=== PATIENT | male | born 1965 | race Caucasian/White ===

== ENCOUNTER 2017-11-23 20:03 | Emergency (ER) | payer SELFPAY ==
[~2017-11-23] VITALS: Ht 180.3 cm; Wt 88.0 kg
[2017-11-23] MEDS ORDERED: IV NORMAL SALINE 1,000ML 1,000 ML IV SCH (20:16)
--- NOTE | 2017-11-23 20:29 | RAD ---
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 No priors. Technique: Noncontrast axial cross sectional scanning of the head was performed. PQRS compliance Statement One or more of the following individualized dose reduction techniques were utilized for this study: 1. Automated exposure control 2. Adjustment of the mA and/or kV according to patient size 3. Use of iterative reconstruction technique Findings: No acute intracranial hemorrhage or midline shift or mass-effect or hydrocephalus or extra-axial fluid collection is seen. No focal hypodense area or sulci effacement is seen to indicate an acute infarct or edema radiographically. No skull fracture or pneumocephalus is seen. No opacification of the mastoid sinuses or the paranasal sinuses is seen. The maxillary sinuses are not completely seen in this study. Impression: No acute intracranial abnormality is seen. Note-this critical result was called to the emergency room physician at 8:26 PM on November 23, 2017. Electronically signed by: Kenn Rojas MD (11/23/2017 8:26 PM) [facility]
[2017-11-23 20:45] VITALS: BP 165/91
[2017-11-23 20:45] LABS: BASO % 1 % (0-3); EOS # 0.1 x10^3/uL (0.0-0.7); EOS % 2 % (0-3); HEMATOCRIT 43.3 % (39.0-53.0); HEMOGLOBIN 14.9 g/dL (13.0-17.5); LYMPH # 1.6 x10^3/uL (1.0-4.8); LYMPH % 24 % (24-48); MEAN CORPUSCULAR HEMOGLOBIN 28 pg (25-35); MEAN CORPUSCULAR HGB CONC 35 g/dL (31-37); MEAN CORPUSCULAR VOLUME 81 fL (79-100); MONO # 0.4 x10^3/uL (0.0-1.1); MONO % 7 % (0-9); NEUT # 4.4 x10^3uL (1.8-7.7); NEUT % 67 % (31-73); PLATELET COUNT 261 x10^3/uL (140-400); RED BLOOD COUNT 5.36 x10^6/uL (4.30-5.70); RED CELL DISTRIBUTION WIDTH 14.5 % (11.5-14.5); WHITE BLOOD COUNT 6.6 x10^3/uL (4.0-11.0)
[2017-11-23 21:00] LABS: ALBUMIN 4.3 g/dL (3.4-5.0); ALBUMIN/GLOBULIN RATIO 1.1 (1.0-1.7); CREATININE 1.4 mg/dL (0.7-1.3); POTASSIUM 4.1 mmol/L (3.5-5.1); TOTAL BILIRUBIN 0.4 mg/dL (0.2-1.0); TOTAL PROTEIN 8.1 g/dL (6.4-8.2)
[2017-11-23] MEDS ORDERED: IV NORMAL SALINE 50ML 50 ML IV ONE (21:00)
[2017-11-23] MEDS ORDERED: ALTEPLASE IV SCH (21:00)
[2017-11-23 21:13] LABS: BACTERIA,URINE 0 /HPF (0-FEW); BILIRUBIN,URINE NEG (NEG); CLARITY,URINE CLEAR; COLOR,URINE STRAW; GLUCOSE,URINE >=1000 mg/dL (NEG); NITRITE,URINE NEG (NEG); RBC,URINE RARE /HPF (0-2); SQUAMOUS EPITHELIAL CELL,UR OCC /LPF; UROBILINOGEN,URINE 0.2 mg/dL (0.2 mg/dL); WBC,URINE RARE /HPF (0-4)
[2017-11-23] MEDS ORDERED: ALTEPLASE IV ONE (21:15)
--- NOTE | 2017-11-23 21:42 | PHYS DOC ---
Past History Past Medical History: Hypertension Past Surgical History: No Surgical History Alcohol Use: None Drug Use: None Adult General Chief Complaint Chief Complaint: SLURRED SPEECH HPI HPI 52-year-old male presenting to the emergency department today with slurred speech and right upper extremity numbness and weakness. Patient was last known well at 6 PM this evening. He has mild difficulty finding words as well. Location brain. Duration constant. No alleviating or exacerbating factors present. This occurred while he was eating dinner, his noticed that he was sounding funny when he spoke. He also reports a change in smell at that time as well. ROS is negative for headache neck stiffness vision changes confusion abdominal pain chest pain shortness of breath. All other review of systems is negative unless otherwise noted in history of present illness. ED course: 52-year-old male presenting to the emergency department today with strokelike symptoms. Head CT unremarkable. Discussed the case with radiologist who reviewed the head CT. Discussed the case with our neurologist Dr. Coyle and [facility] neurologist Dr. Edmond. Inclusion: Patient presented within 3 hours of his last known well at 6 PM. He is older than 18. Blood work obtained. NIH stroke scale calculated to be 6. Checklist utilized for the eligibility of TPA. Glucose is 347, blood pressure is 165/91, platelet count is 261, INR is 1.0. Patient is not on anticoagulants. He does not have a history of intracranial hemorrhage. He has not had a stroke or head trauma in the last 3 months. He does not have an intracranial neoplasm, AV malformation or aneurysm. He has not had a recent intracranial or intraspinal surgery. He has not had recent arterial puncture. His symptoms are not suggestive of subarachnoid hemorrhage. He does not have active internal bleeding. He does not have acute bleeding diathesis. He has not had a major surgery or serious trauma in the last 14 days. He has not had GI or urinary tract bleeding over the past 21 days. He has not had an myocardial infarction in the last 3 months. He did not have a seizure at the onset of symptoms. I also reviewed the checklist for [facility] alteplase exclusion and inclusion criteria. Patient does not have any contraindications. Dr. Edmond accepted the patient for transfer. He strongly recommended not giving TPA until the patient's platelets were back and until the patient's INR was back. I clarified with him as the patient is not on anticoagulants and is not bruising easily and has never had bleeding issues. He again strongly recommended waiting until these tests came back to give the TPA. I had a risk-benefit discussion with the patient along with alternatives for treatment and the pt and his give consent. In conjunction with the neurologist at [facility] Dr. Edmond with the family's consent it was decided to give TPA. We then expedited transfer to our major stroke center at [facility] for CT angiography/CT perfusion scanning, further evaluation workup and care to a higher level stroke center. My NIH Stroke Scale: Level of consciousness 0 Level of consciousness questions 0 Best gaze 0 Visual valentine 0 Facial palsy 0 Left motor arm 0 Right motor arm 1 Left motor leg 0 Right motor leg 0 Limb ataxia 1 Sensory 1 Best language 1 Dysarthria 1 Extension and inattention 1 Total score: 6 Checklist Utilized: Eligibility criteria for the treatment of acute ischemic stroke with recombinant tissue plasminogen activator (alteplase) Inclusion criteria Clinical diagnosis of ischemic stroke causing measurable neurologic deficit Onset of symptoms <4.5 hours before beginning treatment; if the exact time of stroke onset is not known, it is defined as the last time the patient was known to be normal Age 18 years Exclusion criteria Historical: Stroke or head trauma in the previous three months Previous intracranial hemorrhage Intracranial neoplasm, arteriovenous malformation, or aneurysm Recent intracranial or intraspinal surgery Arterial puncture at a noncompressible site in the previous seven days Clinical: Symptoms suggestive of subarachnoid hemorrhage Persistent blood pressure elevation (systolic 185 mmHg or diastolic 110 mmHg) Serum glucose <50 mg/dL (<2.8 mmol/L) Active internal bleeding Acute bleeding diathesis, including but not limited to conditions defined in ' Hematologic' Hematologic: Platelet count <100,000/mm3* Current anticoagulant use with an INR >1.7 or PT >15 seconds* Heparin use within 48 hours and an abnormally elevated aPTT* Current use of a direct thrombin inhibitor or direct factor Xa inhibitor with evidence of anticoagulant effect by laboratory tests such as aPTT, INR, ECT, TT , or appropriate factor Xa activity assays Head CT scan: Evidence of hemorrhage Extensive regions of obvious hypodensity consistent with irreversible injury Relative exclusion criteria: Only minor and isolated neurologic signs Rapidly improving stroke symptoms Major surgery or serious trauma in the previous 14 days Gastrointestinal or urinary tract bleeding in the previous 21 days Myocardial infarction in the previous three months Seizure at the onset of stroke with postictal neurologic impairments Additional relative exclusion criteria for treatment from 3 to 4.5 hours from symptom onset Age >80 years Oral anticoagulant use regardless of INR Severe stroke (NIHSS score >25) Combination of both previous ischemic stroke and diabetes mellitus Review of Systems Review of Systems SEE ABOVE. Current Medications Current Medications Current Medications Medications (Trade) Dose Ordered Sig/[place] Start Time Stop Time Status Last Admin Dose Admin Alteplase, Recombinant 0 ml @ 0 mls/hr Q1H 11/23/17 21:00 11/23/17 21:02 DC 11/23/17 21:08 71.5 MLS/HR Sodium Chloride 50 ml @ 0 mls/hr 1X ONCE 11/23/17 21:00 11/23/17 21:02 DC Allergies Allergies Allergies Coded Allergies Type Severity Reaction Last Updated Verified No Known Drug Allergies 11/23/17 No Physical Exam Physical Exam SEE ABOVE Constitutional: Well developed, well nourished, no acute distress, non-toxic appearance. [] HENT: Normocephalic, atraumatic, bilateral external ears normal, oropharynx moist, no oral exudates, nose normal. [] Eyes: PERRLA, EOMI, conjunctiva normal, no discharge. [] Neck: Normal range of motion, no tenderness, supple, no stridor. [] Cardiovascular:Heart rate regular rhythm, no murmur [] Lungs & Thorax: Bilateral breath sounds clear to auscultation [] Abdomen: Bowel sounds normal, soft, no tenderness, no masses, no pulsatile masses. [] Skin: Warm, dry, no erythema, no rash. [] Back: No tenderness, no CVA tenderness. [] Extremities: No tenderness, no cyanosis, no clubbing, ROM intact, no edema. [] Neurologic: Mental status: Awake oriented and alert x3 Cranial nerves: Extraocular movements intact, eyebrows rhona bilaterally, smile symmetric, uvula elevation nl, shoulder shrug intact bilaterally, tongue protrusion normal DTRs: 2+ Sensation: Patient has decreased sensation in the right upper extremity. The remainder the extremities have normal sensation. Strength: Patient is unable to grab my fingers with his right upper hand. Significantly weak in the RUE. 4 out of 5 strength in the bicep and tricep. Forearm musculature show 2 out of 5 strength. He has mild drift on the right upper extremity. Patient has 5 out of 5 strength in the left upper extremity, and the left and right lower extremities. Patient has abnormal finger to nose on the right upper extremity. Normal heel-to -christopher on both sides. Normal finger to nose on the left upper extremity. No evidence of dysdiadochokinesia on rapid alternating movements. Psychologic: Affect normal, judgement normal, mood normal. [] Current Patient Data Vital Signs Vital Signs Date Time Temp Pulse Resp B/P (MAP) Pulse Ox O2 Delivery O2 Flow Rate FiO2 11/23/17 21:15 60 18 154/95 (114) 99 Room Air 11/23/17 20:45 97.9 Lab Results Laboratory Tests Test 11/23/17 20:23 11/23/17 20:30 Glucose (Fingerstick) 347 mg/dL (70-99) H White Blood Count 6.6 x10^3/uL (4.0-11.0) Red Blood Count 5.36 x10^6/uL (4.30-5.70) Hemoglobin 14.9 g/dL (13.0-17.5) Hematocrit 43.3 % (39.0-53.0) Mean Corpuscular Volume 81 fL (79-100) Mean Corpuscular Hemoglobin 28 pg (25-35) Mean Corpuscular Hemoglobin Concent 35 g/dL (31-37) Red Cell Distribution Width 14.5 % (11.5-14.5) Platelet Count 261 x10^3/uL (140-400) Neutrophils (%) (Auto) 67 % (31-73) Lymphocytes (%) (Auto) 24 % (24-48) Monocytes (%) (Auto) 7 % (0-9) Eosinophils (%) (Auto) 2 % (0-3) Basophils (%) (Auto) 1 % (0-3) Neutrophils # (Auto) 4.4 x10^3uL (1.8-7.7) Lymphocytes # (Auto) 1.6 x10^3/uL (1.0-4.8) Monocytes # (Auto) 0.4 x10^3/uL (0.0-1.1) Eosinophils # (Auto) 0.1 x10^3/uL (0.0-0.7) Basophils # (Auto) 0.0 x10^3/uL (0.0-0.2) Prothrombin Time 10.4 SEC (9.4-11.4) Prothrombin Time INR 1.0 (0.9-1.1) PTT 29 SEC (23-33) Urine Collection Type Unknown Urine Color Straw Urine Clarity Clear Urine pH 7.0 Urine Specific [place] 1.015 Urine Protein Neg (NEG-TRACE) Urine Glucose (UA) >=1000 mg/dL (NEG) Urine Ketones (Stick) Neg mg/dL (NEG) Urine Blood Neg (NEG) Urine Nitrite Neg (NEG) Urine Bilirubin Neg (NEG) Urine Urobilinogen Dipstick 0.2 mg/dL (0.2 mg/dL) Urine Leukocyte Esterase Neg (NEG) Urine RBC Rare /HPF (0-2) Urine WBC Rare /HPF (0-4) Urine Squamous Epithelial Cells Occ /LPF Urine Bacteria 0 /HPF (0-FEW) Sodium Level 139 mmol/L (136-145) Potassium Level 4.1 mmol/L (3.5-5.1) Chloride Level 99 mmol/L (98-107) Carbon Dioxide Level 32 mmol/L (21-32) Anion Gap 8 (6-14) Blood Urea Nitrogen 18 mg/dL (8-26) Creatinine 1.4 mg/dL (0.7-1.3) H Estimated GFR (Cockcroft-Gault) 53.0 BUN/Creatinine Ratio 13 (6-20) Glucose Level 354 mg/dL (70-99) H Calcium Level 9.0 mg/dL (8.5-10.1) Total Bilirubin 0.4 mg/dL (0.2-1.0) Aspartate Amino Transferase (AST) 20 U/L (15-37) Alanine Aminotransferase (ALT) 38 U/L (16-63) Alkaline Phosphatase 103 U/L (46-116) Troponin I Quantitative < 0.017 ng/mL (0-0.055) Total Protein 8.1 g/dL (6.4-8.2) Albumin 4.3 g/dL (3.4-5.0) Albumin/Globulin Ratio 1.1 (1.0-1.7) EKG EKG [] Radiology/Procedures Radiology/Procedures [address] [address] IMAGING REPORT Signed PATIENT: WILLI WEN ACCOUNT: [id number] : 1965 LOCATION: ER AGE: 52 SEX: M EXAM STATUS: PRE ER ORD. 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 No priors. Technique: Noncontrast axial cross sectional scanning of the head was performed. PQRS compliance Statement One or more of the following individualized dose reduction techniques were utilized for this study: 1. Automated exposure control 2. Adjustment of the mA and/or kV according to patient size 3. Use of iterative reconstruction technique Findings: No acute intracranial hemorrhage or midline shift or mass-effect or hydrocephalus or extra-axial fluid collection is seen. No focal hypodense area or sulci effacement is seen to indicate an acute infarct or edema radiographically. No skull fracture or pneumocephalus is seen. No opacification of the mastoid sinuses or the paranasal sinuses is seen. The maxillary sinuses are not completely seen in this study. Impression: No acute intracranial abnormality is seen. Note-this critical result was called to the emergency room physician at 8:26 PM on November 23, 2017. Electronically signed by: Yoly Rojas MD (11/23/2017 8:26 PM) [facility] DICTATED AND SIGNED BY: YOLY ROJAS MD DATE: 11/23/172022 CC: IGOR NOLAND APRN; GISSEL GAN MD ~ [] Course & Med Decision Making Course & Med Decision Making Pertinent Labs and Imaging studies reviewed. (See chart for details) [] Dragon Disclaimer Dragon Disclaimer This electronic medical record was generated, in whole or in part, using a voice recognition dictation system. Departure Departure: Impression: Primary Impression: Stroke-like symptoms Disposition: XF [facility] (formerly [facility]. Accepting doctor is dr. edmond and dr. Celeste. ) Condition: GUARDED Referrals: IGOR NOLAND APRN (PCP) Critical Care Time Critical care time spent was 35 minutes exclusive of procedures. Time was spent evaluating the patient, ordering the administration of medications, reevaluating the patient, discussing with the admitting provider and documenting. GISSEL GAN MD Nov 23, 2017 21:42
--- NOTE | 2017-11-24 08:07 | RAD ---
Single view chest 11/23/2017 Clinical indication: Right-sided weakness slurred speech. Comparison: None. Findings: Cardiac and mediastinal silhouettes are unremarkable. No pleural effusion, pneumothorax or focal consolidation. There is superior positioning of the clavicle relative to the acromion. Impression: 1. No acute cardiopulmonary abnormality. 2. Superior positioning of the clavicle relative to the acromion, may represent AC injury.
== END 2017-11-23 21:26 | disposition short-term general hospital (02) ==
LOC: ER 20:03
DX: R47.81 Slurred speech (principal); R53.1 Weakness; R20.0 Anesthesia of skin; I10 Essential (primary) hypertension
CPT/HCPCS: 36415; 37195; 70450; 71045; 80053; 81001; 82947; 84484; 85025; 85610; 85730; 99291; J2997; J7030

== ENCOUNTER 2018-02-05 16:25 | Inpatient (IN) | payer SELFPAY ==
[~2018-02-05] VITALS: Ht 180.3 cm; Wt 89.9 kg
--- NOTE | 2018-02-05 16:39 | PHYS DOC ---
Past History Past Medical History: Hypertension Past Surgical History: No Surgical History Alcohol Use: None Drug Use: None Adult General Chief Complaint Chief Complaint: NEURO SYMPTOMS/DEFICITS [facility] Patient is a 53-year-old male who presents with leg weakness and numbness. Patient got up from sitting to about 2 steps and his leg went numb and weak. This lasted for about 20 minutes and has resolved completely now. He states he seen in October for a stroke and received TPA at that time. He does have a history of diabetes. He states that sugars been running higher since discharge it [facility] because. His oral medications. He denies any fevers chills nausea or vomiting. He states he feels back to normal at this time. He denies any trouble speaking denied falling and hitting his head or having head or neck pain. Review of Systems Review of Systems Constitutional: Denies fever or chills [] Eyes: Denies change in visual acuity, redness, or eye pain [] HENT: Denies nasal congestion or sore throat [] Respiratory: Denies cough or shortness of breath [] Cardiovascular: No additional information not addressed in HPI [] GI: Denies abdominal pain, nausea, vomiting, bloody stools or diarrhea [] : Denies dysuria or hematuria [] Musculoskeletal: Denies back pain or joint pain [] Integument: Denies rash or skin lesions [] Neurologic: Denies headache, focal weakness or sensory changes [] Endocrine: Denies polyuria or polydipsia [] All other systems were reviewed and found to be within normal limits, except as documented in this note. Allergies Allergies Allergies Coded Allergies Type Severity Reaction Last Updated Verified No Known Drug Allergies 11/23/17 No Physical Exam Physical Exam Constitutional: Well developed, well nourished, no acute distress, non-toxic appearance. [] HENT: Normocephalic, atraumatic, bilateral external ears normal, oropharynx moist, no oral exudates, nose normal. [] Eyes: PERRLA, EOMI, conjunctiva normal, no discharge. [] Neck: Normal range of motion, no tenderness, supple, no stridor. [] Cardiovascular:Heart rate regular rhythm, no murmur [] Lungs & Thorax: Bilateral breath sounds clear to auscultation [] Abdomen: Bowel sounds normal, soft, no tenderness, no masses, no pulsatile masses. [] Skin: Warm, dry, no erythema, no rash. [] Back: No tenderness, no CVA tenderness. [] Extremities: No tenderness, no cyanosis, no clubbing, ROM intact, no edema. [] Neurologic: Alert and oriented X 3, normal motor function, normal sensory function, no focal deficits noted. I am nerves II through XII intact, strength 5 out of 5 bilateral upper and lower extremities, sensation intact to light touch in all 4 extremities. Psychologic: Affect normal, judgement normal, mood normal. [] EKG EKG [] Radiology/Procedures Radiology/Procedures [] Impressions: Left leg weakness Course & Med Decision Making Course & Med Decision Making Pertinent Labs and Imaging studies reviewed. (See chart for details) CT head nonacute. Patient symptoms have resolved. Currently waiting on labs. Patient's being checked out to Dr. Rothman for final disposition. Signout obtained from Dr. Lazo. Patient reviewed by al. Plan as outlined by Dr. Lazo is to admit patient pending significant abnormalities and a chemistry. Prior to sign out, patient's CT report as well as all the labs except for CMP had been resulted. Patient's CMP is unremarkable. Will resume with plan as outlined by Dr. Lazo. Patient will be admitted to telemetry. Case has been discussed with Dr. Maldonado who has agreed to assist in further inpatient care of this patient. Dragon Disclaimer Dragon Disclaimer This electronic medical record was generated, in whole or in part, using a voice recognition dictation system. Departure Departure: Impression: Primary Impression: Stroke Disposition: ADMITTED INPATIENT Admitting Physician: Ashley Messer Condition: STABLE Referrals: LEIGH ANN ANDRADE-Silas (PCP) CORNELIA SIMON MD Feb 05, 2018 16:39 DARLYN BENAVIDEZ MD Feb 05, 2018 18:40
--- NOTE | 2018-02-05 17:02 | RAD ---
Clinical indications: Numbness on the right side with slurred speech. Code stroke Technique: Noncontrast axial cross sectional scanning of the head was performed. PQRS Compliance Statement: One or more of the following individualized dose reduction techniques were utilized for this examination: 1. Automated exposure control 2. Adjustment of the mA and/or kV according to patient size 3. Use of iterative reconstruction technique Comparison: November 23, 2017. Findings: No acute intracranial hemorrhage or midline shift or mass-effect or hydrocephalus or extra-axial fluid collection is seen. No new focal hypodense area or sulci effacement is seen to indicate an acute infarct or edema radiographically. No skull fracture or pneumocephalus is seen. No opacification of the mastoid sinuses or the paranasal sinuses is seen. The maxillary sinuses are not completely seen in this study. Impression: No acute intracranial abnormality is seen. Note-this critical result was called to the emergency room physician Dr. Itz Manrique at 4:59 PM on February 05, 2018.
--- NOTE | 2018-02-05 17:07 | RAD ---
Portable AP view CXR: Clinical indications: Numbness and right-sided weakness and slurred speech for one day. Code stroke. Comparison: April 23, 2018. Findings: No acute lung infiltrate or pleural effusion or pulmonary edema or lung mass or pneumothorax is seen. The heart size, pulmonary vasculature, mediastinum and both yany are unremarkable. Impression: No acute radiographic abnormality is seen.
--- NOTE | 2018-02-05 17:31 | EKG ---
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
[2018-02-05 17:39] LABS: BASO % 1 % (0-3); EOS # 0.1 x10^3/uL (0.0-0.7); EOS % 1 % (0-3); HEMATOCRIT 44.1 % (39.0-53.0); HEMOGLOBIN 15.1 g/dL (13.0-17.5); LYMPH # 2.1 x10^3/uL (1.0-4.8); LYMPH % 26 % (24-48); MEAN CORPUSCULAR HEMOGLOBIN 28 pg (25-35); MEAN CORPUSCULAR HGB CONC 34 g/dL (31-37); MEAN CORPUSCULAR VOLUME 81 fL (79-100); MONO # 0.5 x10^3/uL (0.0-1.1); MONO % 7 % (0-9); NEUT # 5.3 x10^3uL (1.8-7.7); NEUT % 66 % (31-73); PLATELET COUNT 229 x10^3/uL (140-400); RED BLOOD COUNT 5.41 x10^6/uL (4.30-5.70); RED CELL DISTRIBUTION WIDTH 14.9 % (11.5-14.5)
[2018-02-05 17:52] LABS: AMPHETAMINE/METHAMPHETAMINE NEG (NEG); BARBITURATES NEG (NEG); BENZODIAZEPINES NEG (NEG); CANNABINOIDS NEG (NEG); COCAINE NEG (NEG); METHADONE NEG (NEG); OPIATES NEG (NEG); PHENCYCLIDINE NEG (NEG)
[2018-02-05 18:00] LABS: CLARITY,URINE CLEAR; COLOR,URINE YELLOW; GLUCOSE,URINE 250 mg/dL (NEG)
[2018-02-05 18:02] LABS: BACTERIA,URINE 0 /HPF (0-FEW); BILIRUBIN,URINE NEG (NEG); NITRITE,URINE NEG (NEG); RBC,URINE RARE /HPF (0-2); SQUAMOUS EPITHELIAL CELL,UR OCC /LPF; UROBILINOGEN,URINE 0.2 mg/dL (0.2 mg/dL); WBC,URINE OCC /HPF (0-4)
[2018-02-05 18:09] LABS: ALBUMIN 3.9 g/dL (3.4-5.0); ALBUMIN/GLOBULIN RATIO 1.3 (1.0-1.7); CALCIUM 9.4 mg/dL (8.5-10.1); CREATININE 1.3 mg/dL (0.7-1.3); DIRECT BILIRUBIN 0.1 mg/dL (0.0-0.2); GFR 57.5; MAGNESIUM 2.3 mg/dL (1.8-2.4); POTASSIUM 4.2 mmol/L (3.5-5.1); TOTAL BILIRUBIN 0.6 mg/dL (0.2-1.0); TOTAL PROTEIN 6.9 g/dL (6.4-8.2)
[2018-02-05] MEDS ORDERED: ACETAMINOPHEN 325 MG TABLET PO PRN (18:30)
[2018-02-05] MEDS ORDERED: ONDANSETRON PF 4 MG/2 ML VIAL. IV PRN (18:30)
[2018-02-05 19:50] VITALS: BP 158/77
[2018-02-05] MEDS ORDERED: PITA4TAB2 PO (20:43)
[2018-02-05] MEDS ORDERED: CARV40CP PO (20:43)
[2018-02-05] MEDS ORDERED: ASPI81TA50 PO (20:43)
[2018-02-05] MEDS ORDERED: AMLO5TAB4 PO (20:43)
[2018-02-05] MEDS ORDERED: GLIP10TA13 PO (20:43)
[2018-02-05] MEDS ORDERED: LEVO100T PO (20:43)
[2018-02-05] MEDS ORDERED: INSU100I13 SQ (20:43)
[2018-02-05] MEDS ORDERED: ASPI325T11 PO (20:48)
[2018-02-05] MEDS: ATORVASTATIN CALCIUM 20 MG TABLET PO SCH (21:00)
[2018-02-05] MEDS ORDERED: INSULIN DETEMIR 300 UNITS/3 ML INSULN.PEN. SQ ONE (21:25)
[2018-02-05 23:00] VITALS: BP 150/73
[2018-02-05] MEDS ORDERED: INSU100I17 SQ (23:25)
[2018-02-06 03:04] VITALS: BP 142/68
--- NOTE | 2018-02-06 03:54 | CONS ---
DATE OF CONSULTATION: 02/05/2018 NEURO CONSULT REFERRING PHYSICIAN: Dr. Messer. REASON FOR CONSULTATION: Rule out stroke. HISTORY OF PRESENT ILLNESS: This is a 53-year-old right-handed male who was admitted through Emergency Room after he presented with 45-60 minutes -- history of weakness of the left lower extremity. The patient stated he had a stroke in 10/2017, presented with right-sided weakness and slurred speech. He had a complete stroke workup at [facility] including MRI and carotid Doppler study. He stated his carotid Doppler study showed complete occlusion of the left carotid artery and 75% occlusion of the right internal carotid artery. He stated the physician tried to open up the right internal carotid artery, but was not successful. Currently, he denies headaches, visual disturbances, nausea, vomiting, chest pain, shortness of breath, palpitation, dysarthria, dysphagia, weakness or paresthesia. PAST MEDICAL HISTORY: Significant for hypertension, stroke as described above without significant residual deficit. SOCIAL HISTORY: The patient denies smoking, alcohol drinking, or illicit drug use. He is . He does not work because he had a stroke. CURRENT MEDICATIONS: Tylenol for pain and Zofran for p.r.n. for nausea and vomiting, also he takes aspirin 81 mg p.o. daily. REVIEW OF SYSTEMS: A 10-point review of system was performed as mentioned above in history of present illness, otherwise unremarkable. ALLERGIES: No known drug allergies. PHYSICAL EXAMINATION: GENERAL: Well-developed, well-nourished white male, not in acute distress. He weighs 94 pounds, the height is 71 inches. VITAL SIGNS: Blood pressure 135/77, respiratory rate 16, pulse is 51, temperature is 97.9, oxygen saturation is 99% on room air. HEENT: Normocephalic, atraumatic, otherwise unremarkable. NECK: Supple. Positive for left carotid bruit. Negative for JVD, thyromegaly, or lymphadenopathy. LUNGS: Clear to A and P. CARDIOVASCULAR: Regular rate rhythm. Normal S1, S2. There is no S3, S4, or murmur. ABDOMEN: Soft. Bowel sounds positive. EXTREMITIES: Negative for cyanosis, clubbing or pitting edema. NEUROLOGIC: 1. MENTAL STATUS: The patient is alert and oriented x 3. The speech is fluent. There is no language dysfunction. Memory, judgment and abstracting thinking are normal. The patient denies hallucination or delusion. 2. CRANIAL NERVES: Visual valentine are full. The pupils are reactive to light and accommodation. The extraocular movements are intact. There is no nystagmus. There is no facial motor or sensory deficit. Hearing is intact bilaterally. The palate is elevated symmetrically. Sternocleidomastoid muscles are powerful bilaterally. The patient shrugs his shoulders symmetrically and protrudes his tongue in the midline without fasciculation or atrophy. 3. MOTOR: No focal muscle bulk was seen. The tone is normal. The strength is 5/5 throughout. 4. SENSORY: Revealed normal pinprick, light touch, vibratory and position senses. 5. DEEP TENDON REFLEXES: Symmetric and active without pathologic responses. 6. GAIT AND COORDINATION: Normal. LABORATORY DATA: CBC revealed white blood cells of 8000, hemoglobin 15.1, hematocrit 44.1, platelet count 229,000. Chemistry revealed sodium of 139, potassium 4.2, chloride 101, CO2 29, BUN 17, creatinine 1.3, glucose is 92. Liver enzymes are normal. Troponin level less than 0.017. Cardiac enzymes are normal. Urinalysis is negative for urinary tract infections. Urine drug screen is negative. IMPRESSION: 1. Questionable transient ischemic attack, presented with 1-hour history of left lower extremity weakness with history of bilateral internal carotid artery stenosis, complete occlusion of the left side and 75% occlusion on the right side. 2. Hypertension. 3. History of stroke as described above without significant neurological residuals. RECOMMENDATIONS: 1. Continue the patient with aspirin at 325 mg if there are no contraindications. 2. We will obtain a recent brain MRI/MRA or carotid Doppler study or angiogram of the neck. M Erin CALIXTO MD DR: BELIA/alex JOB#: [id number] / [id number]
[2018-02-06 07:00] VITALS: BP 134/80
[2018-02-06] MEDS ORDERED: LEVOTHYROXINE 100 MCG TABLET PO SCH (07:00)
[2018-02-06] MEDS: glipiZIDE 5 MG TABLET PO SCH ×2 (07:32→16:50)
[2018-02-06] MEDS: CARVEDILOL 12.5 MG TABLET PO SCH ×2 (08:00→16:50)
[2018-02-06] MEDS: INSULIN ASPART 300 UNITS/3 ML INSULN.PEN SQ SCH ×3 (08:44→16:51)
[2018-02-06] MEDS ORDERED: ASPIRIN ENTERIC COATED 81 MG TABLET.DR. PO SCH (09:00)
[2018-02-06] MEDS ORDERED: ASPIRIN ENTERIC COATED 325 MG TABLET.DR. PO SCH (09:00)
[2018-02-06] MEDS ORDERED: amLODIPine BESYLATE 5 MG TABLET PO SCH (09:00)
[2018-02-06 10:33] VITALS: BP 138/83
[2018-02-06 15:07] VITALS: BP 130/81
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
[2018-02-06 16:50] VITALS: BP 130/81
[2018-02-06] MEDS: ATORVASTATIN CALCIUM 20 MG TABLET PO SCH (16:50)
[2018-02-06] MEDS ORDERED: INSULIN DETEMIR 300 UNITS/3 ML INSULN.PEN. SQ SCH (21:00)
== END 2018-02-06 18:00 | disposition home or self-care (01) | DRG 948 ==
LOC: ER 16:25 → 1 SOUTH 19:00
PROVIDERS: ADMIT Internal Medicine; ATTEND Internal Medicine
DX: R53.1 Weakness (principal); I65.23 Occlusion and stenosis of bilateral carotid arteries; I10 Essential (primary) hypertension; E03.9 Hypothyroidism, unspecified; E78.5 Hyperlipidemia, unspecified; K21.9 Gastro-esophageal reflux disease without esophagitis; I25.10 Atherosclerotic heart disease of native coronary artery without angina pectoris; E11.9 Type 2 diabetes mellitus without complications; R13.10 Dysphagia, unspecified; Z86.73 Personal history of transient ischemic attack (TIA), and cerebral infarction without residual deficits; Z95.5 Presence of coronary angioplasty implant and graft; Z85.818 Personal history of malignant neoplasm of other sites of lip, oral cavity, and pharynx; Z92.21 Personal history of antineoplastic chemotherapy; Z92.3 Personal history of irradiation; Z80.8 Family history of malignant neoplasm of other organs or systems; Z82.3 Family history of stroke; Z82.49 Family history of ischemic heart disease and other diseases of the circulatory system
CPT/HCPCS: 36415; 70450; 71045; 80053; 80076; 80307; 81001; 82553; 82947; 83690; 83735; 83880; 84443; 84484; 85025; 85610; 85730; 93005; J1815; 99285-25; G0479

== ENCOUNTER 2018-03-09 16:32 | Inpatient (IN) | payer SELFPAY ==
[~2018-03-09] VITALS: Ht 180.3 cm; Wt 87.8 kg
[~2018-03-09 16:32] MED LIST: AMLO5TAB4 PO; ASPI325T11 PO; ASPI81TA50 PO; CARV40CP PO; GLIP10TA13 PO; INSU100I13 SQ; INSU100I17 SQ; LEVO100T PO; PITA4TAB2 PO
[2018-03-09] MEDS ORDERED: IV NORMAL SALINE 1,000ML 1,000 ML IV SCH (16:51)
--- NOTE | 2018-03-09 16:58 | PHYS DOC ---
Past History Past Medical History: CAD, CVA, Diabetes Additional Past Surgical Histo: right carotid bypass surgery Smoking: Non-smoker Alcohol Use: None Drug Use: None Adult General Chief Complaint Chief Complaint: MECHANICAL FALL HPI HPI Patient is a 53-year-old white male with a complex past medical history, including diabetes, coronary artery disease with stenting, prior strokes, and a history of a complete left-sided carotid occlusion with a 75% right sided carotid occlusion. He had a stroke in October, and was treated at [facility]. He had what might of been a TIA about a month ago and was hospitalized here overnight for observation. The patient presents to the emergency department because he had 2 syncopal episodes today. He states that both preceded by a brief period of dizziness which she describes both as a sense of lightheadedness as well as a sense of rotation. He states the second episode he was getting out of his car and he felt both legs give out on him. He is back to his baseline now, denies any vision or speech difficulty, or any new cognitive changes. He has not had any pain. He denies any headache. There are no alleviating, or exacerbating factors to his symptoms. He currently has no complaints. Review of Systems Review of Systems Constitutional: Denies fever or chills [] Eyes: Denies change in visual acuity, redness, or eye pain [] HENT: Denies nasal congestion or sore throat [] Respiratory: Denies cough or shortness of breath [] Cardiovascular: The patient denies any shortness of breath, chest pain, palpitations, or orthopnea [] GI: Denies abdominal pain, nausea, vomiting, bloody stools or diarrhea [] : Denies dysuria or hematuria [] Musculoskeletal: Denies back pain or joint pain [] Integument: Denies rash or skin lesions [] Neurologic: Denies headache, current focal weakness or sensory changes [] Endocrine: Denies polyuria or polydipsia [] All other systems were reviewed and found to be within normal limits, except as documented in this note. Current Medications Current Medications Current Medications Medications (Trade) Dose Ordered Sig/[place] Start Time Stop Time Status Last Admin Dose Admin Sodium Chloride 1,000 ml @ 100 mls/hr Q10H 03/09/18 16:51 03/10/18 02:50 Allergies Allergies Allergies Coded Allergies Type Severity Reaction Last Updated Verified lisinopril Allergy Severe swelling 02/05/18 Yes Physical Exam Physical Exam PHYSICAL EXAM: CONSTITUTIONAL: Well developed, well nourished HEAD: normocephalic, atraumatic EENT: PERRL, EOMI. Conjunctivae normal color, sclerae non-icteric; moist mucous membranes. NECK: Supple, non-tender; no meningismus. LUNGS: Lungs CTA, breathing even and unlabored. Normal air movement. HEART: Regular rate and rhythm, no murmur CHEST: No deformity; non-tender ABDOMEN: The abdomen is soft, and non-tender, no masses or bruits. EXTREM: Normal ROM; no deformity, no calf tenderness. Normal pulses palpable in all extremities. There is no pedal edema. SKIN: No rash; no diaphoresis NEURO: Alert; normal speech and cognition; CN's grossly intact; strength grossly intact without focal deficit. [id number] testing and heel-to- christopher testing are normal. Visual valentine are intact by confrontation. NIH stroke scale score is 0. BACK: No CVA TTP. EKG EKG [Normal sinus rhythm at a rate of 56 beats for minute, left axis deviation, normal intervals, there is inferior/lateral T wave inversion, the EKG is not significantly changed compared to patient's prior EKG.] Radiology/Procedures Radiology/Procedures [PROCEDURE: PORTABLE CHEST 1V PORTABLE CHEST 1V History: SYNCOPE TODAY Comparison: February 05, 2018 Findings: Single view of the chest is submitted. There is no infiltrate, pneumothorax, or effusion. The pericardial cardiac silhouette is within normal limits in size. Impression: 1. There is no evidence of acute cardiopulmonary disease.] PROCEDURE: CT HEAD WO CONTRAST CT HEAD WO CONTRAST History: SYNCOPE TODAY, HX OF CVA Comparison: February 05, 2018 Technique: Noncontrast CT imaging was performed of the head. Exposure: One or more of the following individualized dose reduction techniques were utilized for this examination: 1. Automated exposure control 2. Adjustment of the mA and/or kV according to patient size 3. Use of iterative reconstruction technique. Findings: There is some motion degradation. No convincing acute extra-axial or parenchymal hemorrhage is identified. There is no significant intra-axial mass effect, midline shift, or extra-axial fluid collection. The olmstead-white differentiation of the major vascular territories is preserved. The ventricles, sulci, and cisterns are within normal limits in size and configuration. The mastoid air cells and the visualized paranasal sinuses are aerated. No acute calvarial abnormality is identified. Impression: 1. No convincing acute intracranial abnormality is identified. Course & Med Decision Making Course & Med Decision Making Pertinent Labs and Imaging studies reviewed. (See chart for details) [6:00 PM: The patient's condition remains stable. I am not highly suspicious he had an acute neurologic event, as he had no lateralizing symptoms. He might have had a cardiac event and as such, especially given his extensive history, warrants overnight observation. I spoke with Dr. Messer,, who accepted the patient for observation. The patient's lab testing is currently pending and will be followed at shift change for the patient is released upstairs. Dragon Disclaimer Dragon Disclaimer This electronic medical record was generated, in whole or in part, using a voice recognition dictation system. Departure Departure: Impression: Primary Impression: Syncope Additional Impressions: CAD (coronary artery disease) Cerebrovascular disease Disposition: ADMITTED INPATIENT Admitting Physician: Ashley Messer Condition: STABLE Referrals: PCP,NO (PCP) Problem Qualifiers CECIL BEE MD March 09, 2018 16:58
--- NOTE | 2018-03-09 17:24 | RAD ---
CT HEAD WO CONTRAST History: SYNCOPE TODAY, HX OF CVA Comparison: February 05, 2018 Technique: Noncontrast CT imaging was performed of the head. Exposure: One or more of the following individualized dose reduction techniques were utilized for this examination: 1. Automated exposure control 2. Adjustment of the mA and/or kV according to patient size 3. Use of iterative reconstruction technique. Findings: There is some motion degradation. No convincing acute extra-axial or parenchymal hemorrhage is identified. There is no significant intra-axial mass effect, midline shift, or extra-axial fluid collection. The olmstead-white differentiation of the major vascular territories is preserved. The ventricles, sulci, and cisterns are within normal limits in size and configuration. The mastoid air cells and the visualized paranasal sinuses are aerated. No acute calvarial abnormality is identified. Impression: 1. No convincing acute intracranial abnormality is identified. Electronically signed by: Apollo Warner MD (03/09/2018 5:21 PM) [facility]
--- NOTE | 2018-03-09 17:25 | RAD ---
PORTABLE CHEST 1V History: SYNCOPE TODAY Comparison: February 05, 2018 Findings: Single view of the chest is submitted. There is no infiltrate, pneumothorax, or effusion. The pericardial cardiac silhouette is within normal limits in size. Impression: 1. There is no evidence of acute cardiopulmonary disease. Electronically signed by: Apollo Warner MD (03/09/2018 5:21 PM) [facility]
[2018-03-09 17:45] LABS: BASO % 1 % (0-3); EOS # 0.1 x10^3/uL (0.0-0.7); EOS % 2 % (0-3); HEMATOCRIT 41.1 % (39.0-53.0); HEMOGLOBIN 14.3 g/dL (13.0-17.5); LYMPH # 1.6 x10^3/uL (1.0-4.8); LYMPH % 24 % (24-48); MEAN CORPUSCULAR HEMOGLOBIN 28 pg (25-35); MEAN CORPUSCULAR HGB CONC 35 g/dL (31-37); MEAN CORPUSCULAR VOLUME 81 fL (79-100); MONO # 0.5 x10^3/uL (0.0-1.1); MONO % 7 % (0-9); NEUT # 4.3 x10^3uL (1.8-7.7); NEUT % 66 % (31-73); PLATELET COUNT 278 x10^3/uL (140-400); RED BLOOD COUNT 5.09 x10^6/uL (4.30-5.70); RED CELL DISTRIBUTION WIDTH 14.6 % (11.5-14.5); WHITE BLOOD COUNT 6.5 x10^3/uL (4.0-11.0)
--- NOTE | 2018-03-09 18:07 | EKG ---
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
[2018-03-09 18:09] LABS: ALBUMIN 3.8 g/dL (3.4-5.0); ALBUMIN/GLOBULIN RATIO 1.2 (1.0-1.7); CALCIUM 8.3 mg/dL (8.5-10.1); CREATININE 1.2 mg/dL (0.7-1.3); GFR 63.1; MAGNESIUM 2.2 mg/dL (1.8-2.4); POTASSIUM 3.9 mmol/L (3.5-5.1); TOTAL BILIRUBIN 0.6 mg/dL (0.2-1.0); TOTAL PROTEIN 6.9 g/dL (6.4-8.2)
[2018-03-09 19:33] VITALS: BP 166/91
[2018-03-09] MEDS: ENOXAPARIN 40 MG/0.4 ML SYRINGE. SQ SCH (21:07)
[2018-03-09] MEDS: INSULIN GLARGINE 300 UNITS/3 ML INSULN.PEN. SQ SCH (21:18)
[2018-03-09] MEDS: IV NORMAL SALINE 1,000ML 1,000 ML IV SCH (21:20)
[2018-03-09 23:23] VITALS: BP 159/89
[2018-03-10 05:48] VITALS: BP 142/79
[2018-03-10 06:00] LABS: BASO # 0.1 x10^3/uL (0.0-0.2); BASO % 1 % (0-3); EOS # 0.1 x10^3/uL (0.0-0.7); EOS % 2 % (0-3); HEMATOCRIT 40.9 % (39.0-53.0); HEMOGLOBIN 14.5 g/dL (13.0-17.5); LYMPH # 2.1 x10^3/uL (1.0-4.8); LYMPH % 32 % (24-48); MEAN CORPUSCULAR HEMOGLOBIN 29 pg (25-35); MEAN CORPUSCULAR HGB CONC 36 g/dL (31-37); MEAN CORPUSCULAR VOLUME 81 fL (79-100); MONO # 0.5 x10^3/uL (0.0-1.1); MONO % 7 % (0-9); NEUT # 3.9 x10^3uL (1.8-7.7); NEUT % 58 % (31-73); PLATELET COUNT 278 x10^3/uL (140-400); RED BLOOD COUNT 5.04 x10^6/uL (4.30-5.70); RED CELL DISTRIBUTION WIDTH 14.8 % (11.5-14.5); WHITE BLOOD COUNT 6.7 x10^3/uL (4.0-11.0)
[2018-03-10 06:12] LABS: CALCIUM 7.8 mg/dL (8.5-10.1); CREATININE 1.1 mg/dL (0.7-1.3); GFR 69.8
[2018-03-10 06:14] LABS: POTASSIUM 3.6 mmol/L (3.5-5.1)
[2018-03-10] MEDS: IV NORMAL SALINE 1,000ML 1,000 ML IV SCH ×2 (06:45→16:45)
[2018-03-10] MEDS ORDERED: CARVEDILOL 12.5 MG TABLET PO SCH (08:00)
[2018-03-10] MEDS: LEVOTHYROXINE 100 MCG TABLET PO SCH (09:42)
[2018-03-10] MEDS: glipiZIDE 5 MG TABLET PO SCH (09:42)
[2018-03-10] MEDS: ASPIRIN ENTERIC COATED 325 MG TABLET.DR. PO SCH (09:43)
[2018-03-10] MEDS: amLODIPine BESYLATE 5 MG TABLET PO SCH (09:43)
[2018-03-10] MEDS: INSULIN ASPART 300 UNITS/3 ML INSULN.PEN SQ SCH ×3 (09:49→17:49)
--- NOTE | 2018-03-10 09:56 | PDOC2 ---
CONSULT Date of Admission DATE: 03/10/18 TIME: 09:50 Reason for Consult: syncope Problem List Problems Medical Problems: (1) CAD (coronary artery disease) Status: Acute (2) Cerebrovascular disease Status: Acute (3) Syncope Status: Acute History of Present Illness Mr Cortes is a 53-year-old white male with a medical history of coronary artery disease with stenting, prior strokes (the last one being in October and a TIA last month), total occlusion of left carotid and 75% right sided reocclusion after endarterectomy, as well as diabetes and hyperlipidemia. He reports episodes of lightheadedness and dizziness with associated blurred vision and occasionally an aura type sensation as well as weakness in both legs and falls. Yesterday he experienced two episodes. He reported one episode when going to the car with a spinning sensation followed by leg weakness. The second episode occured after getting out of the car, again with the spinning sensation, "foggy" vision and a sudden weakness of his legs. He reports he started to fall and his "controlled the fall" getting him to the ground. He reports being unable to stand for a minute or so. He denies any palpitations , diaphoresis, chest pain or other symptoms associated with the episode. He apparently went to have pizza afterwards and then his talked him into coming in for evaluation. He denies any episodes of LOC. He denies loss of continence. He also reports an episode yesterday while laying in bed where his apparently reported him looking blue. He reports that he was not really having symptoms at that time. His encouraged him to stand up and then thought he looked better. He reports decreased functional capacity since his stroke but reports ability to walk up to 2 miles without symptoms. He does report occasional chest pain if he tries to hurry but states it resolves in a minute or two without needing to stop the exertion. He reports the pain is not similar to his prior NJ. Past Medical History hypertension, CVA, TIA, CAD, diabetes mellitus, hyperlipidemia, nasopharyngeal cancer s/p radiation, hypothyroid, NJ in 2011 with PCI/Stent to LAD, hearing loss, carotid stenosis with right sided surgery and reportedly 100% left. Last stress test and echo about 3 years ago at [facility]. Past Surgical History right carotid bypass surgery Social History denies smoking, alcohol drinking, or illicit drug use. Current Medications Home cardiac meds include aspinin, atorvastatin, carvedilol, amlodipine Current Medications Sodium Chloride 1,000 ml @ 100 mls/hr Q10H IV Last administered on 03/09/18at 17:44; Start 03/09/18 at 16:51; Stop 03/09/18 at 20:46; Status DC Aspirin (Aspirin Enteric Coated) 325 mg DAILY PO ; Start 03/10/18 at 09:00 Insulin Aspart (NovoLOG) 3 units TIDWMEALS SQ ; Start 03/10/18 at 08:00 Insulin Glargine (Lantus) 20 units QHS SQ Last administered on 03/09/18at 21:18 ; Start 03/09/18 at 21:00 Levothyroxine Sodium (Synthroid) 100 mcg DAILYAC PO ; Start 03/10/18 at 07:30 Amlodipine Besylate (Norvasc) 5 mg DAILY PO ; Start 03/10/18 at 09:00 Carvedilol (Coreg) 12.5 mg BIDWMEALS PO ; Start 03/10/18 at 08:00 Glipizide (Glucotrol) 10 mg DAILY08 PO ; Start 03/10/18 at 08:00 Atorvastatin Calcium (Lipitor) 20 mg QHS PO ; Start 03/10/18 at 21:00 Enoxaparin Sodium (Lovenox) 40 mg Q24H SQ Last administered on 03/09/18at 21:07 ; Start 03/09/18 at 21:00 Sodium Chloride 1,000 ml @ 100 mls/hr Q10H IV Last administered on 03/09/18at 21:20; Start 03/09/18 at 20:45 Active Scripts Active Reported Novolog Flexpen (Insulin Aspart) 100 Unit/1 Ml Insuln.pen 3 Unit SQ TIDWMEALS Aspirin Ec (Aspirin) 325 Mg Tablet.dr 325 Mg PO DAILY Livalo (Pitavastatin Calcium) 4 Mg Tablet 4 Mg PO QD Synthroid (Levothyroxine Sodium) 100 Mcg Tablet 100 Mcg PO DAILYAC Lantus Solostar (Insulin Glargine,Hum.rec.anlog) 100 Unit/1 Ml Insuln.pen 20 Unit SQ QHS Glipizide 10 Mg Tablet 10 Mg PO DAILY08 Coreg Cr (Carvedilol Phosphate) 40 Mg Cpmp.24hr 40 Mg PO DAILY Norvasc (Amlodipine Besylate) 5 Mg Tablet 5 Mg PO DAILY Allergies: Coded Allergies: lisinopril (Verified Allergy, Severe, swelling, 02/05/18) Review of System ROS as per HPI General: Alert, Oriented X3, Cooperative, No acute distress HEENT: Atraumatic, EOMI, Mucous membr. moist/pink, Other (hard of hearing) Lungs: Clear to auscultation, Normal air movement Heart: Normal S1, Normal S2, Other (no gallops, clicks or rubs) Abdomen: Normal bowel sounds, Soft, No tenderness Extremities: No cyanosis, Normal pulses Neuro: Strength at 5/5 X4 ext Psych/Mental Status: Mental status NL, Mood NL VITALS Vital Signs Date Time Temp Pulse Resp B/P (MAP) Pulse Ox O2 Delivery O2 Flow Rate FiO2 03/10/18 05:48 98.0 59 20 142/79 (100) 94 Room Air Labs Laboratory Tests Test 03/09/18 17:30 03/09/18 18:23 03/09/18 21:00 03/09/18 21:13 White Blood Count 6.5 x10^3/uL (4.0-11.0) Red Blood Count 5.09 x10^6/uL (4.30-5.70) Hemoglobin 14.3 g/dL (13.0-17.5) Hematocrit 41.1 % (39.0-53.0) Mean Corpuscular Volume 81 fL (79-100) Mean Corpuscular Hemoglobin 28 pg (25-35) Mean Corpuscular Hemoglobin Concent 35 g/dL (31-37) Red Cell Distribution Width 14.6 % (11.5-14.5) Platelet Count 278 x10^3/uL (140-400) Neutrophils (%) (Auto) 66 % (31-73) Lymphocytes (%) (Auto) 24 % (24-48) Monocytes (%) (Auto) 7 % (0-9) Eosinophils (%) (Auto) 2 % (0-3) Basophils (%) (Auto) 1 % (0-3) Neutrophils # (Auto) 4.3 x10^3uL (1.8-7.7) Lymphocytes # (Auto) 1.6 x10^3/uL (1.0-4.8) Monocytes # (Auto) 0.5 x10^3/uL (0.0-1.1) Eosinophils # (Auto) 0.1 x10^3/uL (0.0-0.7) Basophils # (Auto) 0.0 x10^3/uL (0.0-0.2) Prothrombin Time 10.4 SEC (9.4-11.4) Prothromb Time International Ratio 1.0 (0.9-1.1) Activated Partial Thromboplast Time 31 SEC (23-33) Sodium Level 140 mmol/L (136-145) Potassium Level 3.9 mmol/L (3.5-5.1) Chloride Level 101 mmol/L (98-107) Carbon Dioxide Level 31 mmol/L (21-32) Anion Gap 8 (6-14) Blood Urea Nitrogen 17 mg/dL (8-26) Creatinine 1.2 mg/dL (0.7-1.3) Estimated GFR (Cockcroft-Gault) 63.1 BUN/Creatinine Ratio 14 (6-20) Glucose Level 204 mg/dL (70-99) Calcium Level 8.3 mg/dL (8.5-10.1) Magnesium Level 2.2 mg/dL (1.8-2.4) Total Bilirubin 0.6 mg/dL (0.2-1.0) Aspartate Amino Transf (AST/SGOT) 26 U/L (15-37) Alanine Aminotransferase (ALT/SGPT) 45 U/L (16-63) Alkaline Phosphatase 72 U/L (46-116) Creatine Kinase 199 U/L (39-308) Creatine Kinase MB (Mass) 1.7 ng/mL (0.0-3.6) Creatine Kinase MB Relative Index 0.9 % (0-4) Troponin I Quantitative < 0.017 ng/mL (0-0.055) < 0.017 ng/mL (0-0.055) LY-Bne-B-Type Natriuretic Peptide 45 pg/mL (0-124) Total Protein 6.9 g/dL (6.4-8.2) Albumin 3.8 g/dL (3.4-5.0) Albumin/Globulin Ratio 1.2 (1.0-1.7) Glucose (Fingerstick) 182 mg/dL (70-99) 124 mg/dL (70-99) Test 03/10/18 00:10 03/10/18 05:37 03/10/18 07:52 Troponin I Quantitative < 0.017 ng/mL (0-0.055) White Blood Count 6.7 x10^3/uL (4.0-11.0) Red Blood Count 5.04 x10^6/uL (4.30-5.70) Hemoglobin 14.5 g/dL (13.0-17.5) Hematocrit 40.9 % (39.0-53.0) Mean Corpuscular Volume 81 fL (79-100) Mean Corpuscular Hemoglobin 29 pg (25-35) Mean Corpuscular Hemoglobin Concent 36 g/dL (31-37) Red Cell Distribution Width 14.8 % (11.5-14.5) Platelet Count 278 x10^3/uL (140-400) Neutrophils (%) (Auto) 58 % (31-73) Lymphocytes (%) (Auto) 32 % (24-48) Monocytes (%) (Auto) 7 % (0-9) Eosinophils (%) (Auto) 2 % (0-3) Basophils (%) (Auto) 1 % (0-3) Neutrophils # (Auto) 3.9 x10^3uL (1.8-7.7) Lymphocytes # (Auto) 2.1 x10^3/uL (1.0-4.8) Monocytes # (Auto) 0.5 x10^3/uL (0.0-1.1) Eosinophils # (Auto) 0.1 x10^3/uL (0.0-0.7) Basophils # (Auto) 0.1 x10^3/uL (0.0-0.2) Sodium Level 142 mmol/L (136-145) Potassium Level 3.6 mmol/L (3.5-5.1) Chloride Level 105 mmol/L (98-107) Carbon Dioxide Level 28 mmol/L (21-32) Anion Gap 9 (6-14) Blood Urea Nitrogen 12 mg/dL (8-26) Creatinine 1.1 mg/dL (0.7-1.3) Estimated GFR (Cockcroft-Gault) 69.8 Glucose Level 193 mg/dL (70-99) Calcium Level 7.8 mg/dL (8.5-10.1) Glucose (Fingerstick) 160 mg/dL (70-99) Images CXR - Impression: 1. There is no evidence of acute cardiopulmonary disease. Head CT Impression: 1. No convincing acute intracranial abnormality is identified. EKG - sinus mahnaz, leftward axis, non specific st/t abn, no acute ischemic changes Assessment/Plan 1. lightheadedness and dizziness with possible presyncope - no LOC. - ? related to arrhythmias. currently bradycardic with occasional ventricular ectopy but no significant arrhythmias. Will decrease beta blockers and recommend event monitoring. 2. bradycardia - sinus in the 50s without significant arrhythmia or pausing. 3. CAD - Prior NJ and PCI/stent to LAD by patient history. request records. Reported infrequent chest pain appears atypical in nature. Currently angina free. NJ is ruled out. Suggest echocardiogram for LV function and consider outpatient MPI for CAD progression. 4. HTN - controlled on current Rx 5. HLD - continue statin, check lipids 6. Carotid stenosis - neuro following, consider return to vascular surgery for eval. 7. history of CVA and TIA - neuro following 8. diabetes - per PCP WALKER IVERSON [employer] March 10, 2018 09:56
[2018-03-10 11:00] VITALS: BP 120/80
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
[2018-03-10 14:34] LABS: CHOLESTEROL 128 mg/dL (0-200); HDLC 20 mg/dL (40-60); TRIGLYCERIDES 894 mg/dL (0-150); VLDLC 178 mg/dL (0-40)
[2018-03-10] MEDS: CARVEDILOL 6.25 MG TABLET PO SCH (17:47)
[2018-03-10 18:15] VITALS: BP_SYST 113; BP_SYST 130; BP_DIAS 79; BP_DIAS 86
[2018-03-10 18:16] VITALS: BP 120/80
--- NOTE | 2018-03-10 18:23 | CARD ---
MR#: [id number] Date of Study: 03/10/2018 Ordering Physician: WALKER IVERSON, Referring Physician: SHIMON WHITESIDE Tech: GILBERT Power APPROVED REPORT EXAM: Two-dimensional and M-mode echocardiogram with Doppler and color Doppler. Other Information Quality : GoodHR: 53bpm INDICATION Cardiac Disease: CAD near syncope 2D DIMENSIONS RVDd3.4 (2.9-3.5cm)Left Atrium(2D)3.2 (1.6-4.0cm) IVSd1.4 (0.7-1.1cm)Aortic Root(2D)3.0 (2.0-3.7cm) LVDd4.5 (3.9-5.9cm)LVOT Diameter2.0 (1.8-2.4cm) PWd1.4 (0.7-1.1cm)LVDs2.7 (2.5-4.0cm) FS (%) 41.1 %SV67.8 ml LVEF(%)72.1 (>50%) Aortic Valve AoV Peak Stefan.132.7cm/sAoV VTI29.1cm AO Peak GR.7.0mmHgLVOT Peak Stefan.99.4cm/s LVOT VTI 23.28cmAO Mean GR.4mmHg SHELBY (VMAX)2.94xq6OBY (VTI)2.46cm2 Mitral Valve MV E Afnjgvjp19.4cm/sMV DECEL [id number] MV A Xeslvfba57.4cm/sE/A Ratio1.2 Pulmonary Valve PV Peak Lnvoflxp02.2cm/sPV Peak Grad.3mmHg Tricuspid Valve TR P. Xetvnuom845lu/sTR Peak Gr.4mmHg Pulmonary Vein S1 Xoidovxv97.7cm/sD2 Unkgngin82.3cm/s LEFT VENTRICLE The left ventricle is normal size. There is moderate concentric left ventricular hypertrophy. The lef t ventricular systolic function is normal and the ejection fraction is within normal range. EF 70% Th ere is normal LV segmental wall motion. The left ventricular diastolic function and filling is normal for age. RIGHT VENTRICLE The right ventricle is normal size. The right ventricular systolic function is normal. ATRIA The left atrium size is normal. The right atrium size is normal. The interatrial septum is intact wit h no evidence for an atrial septal defect or patent foramen ovale as noted on 2-D or Doppler imaging. AORTIC VALVE The aortic valve is thickened but opens well. Doppler and Color Flow revealed no significant aortic r egurgitation. There is no significant aortic valvular stenosis. There is no aortic valvular vegetatio n. MITRAL VALVE The mitral valve is thickened but opens well. There is no evidence of mitral valve prolapse. There is no mitral valve stenosis. Doppler and Color Flow revealed no mitral valve regurgitation noted. TRICUSPID VALVE The tricuspid valve is normal in structure and function. Doppler and Color Flow revealed no tricuspid valve regurgitation noted. There is no tricuspid valve prolapse or vegetation. There is no tricuspid valve stenosis. PULMONIC VALVE The pulmonary valve is normal in structure and function. Doppler and Color Flow revealed no pulmonic valvular regurgitation. There is no pulmonic valvular stenosis. GREAT VESSELS The aortic root is normal in size. The IVC is normal in size and collapses >50% with inspiration. PERICARDIAL EFFUSION There is no pleural effusion. There is no evidence of significant pericardial effusion. Critical Notification Critical Value: No <Conclusion> There is moderate concentric left ventricular hypertrophy. The left ventricular systolic function is normal and the ejection fraction is within normal range. EF 70% There is normal LV segmental wall motion. Signed by : Jaguar Mack, Electronically Approved : 03/10/2018 18:23:05
[2018-03-10 19:32] VITALS: BP 129/76
[2018-03-10] MEDS: ENOXAPARIN 40 MG/0.4 ML SYRINGE. SQ SCH (20:07)
[2018-03-10] MEDS: INSULIN GLARGINE 300 UNITS/3 ML INSULN.PEN. SQ SCH (20:08)
[2018-03-10] MEDS ORDERED: ATORVASTATIN CALCIUM 20 MG TABLET PO SCH (21:00)
[2018-03-10 22:45] VITALS: BP 158/73
--- NOTE | 2018-03-11 00:12 | CONS ---
DATE OF CONSULTATION: 03/10/2018 REFERRING PHYSICIAN: Dr. Messer. REASON FOR CONSULTATION: Rule out syncope versus TIA. HISTORY OF PRESENT ILLNESS: This is a 53-year-old right-handed white male who was admitted through Emergency Room after he presented with a possible new onset of a syncopal attack. According to the patient, he was getting out of a car. He felt dizzy, described as lightheadedness, and possible mild spinning. The symptom lasted a few seconds and he had two episodes. The patient stated he had TIA, and possible stroke 3 months ago affecting his right hand only. The patient is known to me from a recent admission to the [facility]. He denies headaches, visual disturbances, nausea, vomiting, chest pain, shortness of breath or palpitation, dysarthria, dysphagia, or palpitations. PAST MEDICAL HISTORY: Significant for diabetes mellitus, coronary artery disease, required stenting, history of stroke with underlying complete left carotid artery occlusion with a 75 right-sided carotid artery stenosis required a carotid endarterectomy. He probably had a brief TIA a month ago. The patient has been treated at [facility] and we have no medical record available at bedtime. PAST MEDICAL HISTORY: History of hypertension, hyperlipidemia, hypothyroidism, nasopharyngeal carcinoma, bilateral deafness since , history of right leg crush injury, stroke, and TIA as described above. FAMILY HISTORY: Mother had hypothyroidism and hypertension. Father had congestive heart failure. SOCIAL HISTORY: The patient denies smoking, alcohol drinking, or illicit drug use. CURRENT HOME MEDICATIONS: Lipitor, amlodipine, aspirin, glipizide, carvedilol, insulin, levothyroxine. ALLERGIES: LISINOPRIL. REVIEW OF SYSTEMS: His 10-point review of system was performed as mentioned above in history of present illness. PHYSICAL EXAMINATION: GENERAL: A well-developed, well-nourished white male, not in acute distress. He weighs 189 pounds. VITAL SIGNS: Blood pressure 142/79, respiratory 20, pulse is 59 regular, temperature 98, and oxygen saturation 94% on room air. HEENT: Normocephalic, atraumatic, otherwise unremarkable. NECK: Supple. Negative for carotid bruit, lymphadenopathy or thyromegaly. LUNGS: Clear to A and P. CARDIOVASCULAR: Regular rate and rhythm, normal S1, S2. ABDOMEN: Soft. Bowel sounds are positive. EXTREMITIES: Negative for cyanosis, clubbing, pitting edema. NEUROLOGICAL EXAMINATION: 1. Mental status: The patient is alert and oriented x 3. Speech is fluent. There is no language dysfunction. Memory, judgment, and abstract thinking are normal. The patient denies hallucination or delusion. 2. Cranial nerves: Visual valentine are full. The pupils are reactive to light and accommodation. Extraocular movements are intact. There is no nystagmus. There is no facial motor or sensory deficit. Hearing is diminished bilaterally. The palate is elevated symmetrically. Sternocleidomastoid muscles are powerful bilaterally. The patient shrugs his shoulders symmetrically, protrudes his tongue in the midline without fasciculation or atrophy. 3. Motor examination: No focal or muscle bulk was seen. The tone is normal. The strength is 5/5 throughout. 4. Sensory examination revealed diminished pinprick in the left to light touch senses and patchy distributions in both lower extremities. 5. Deep tendon reflexes were symmetric and hypoactive with absent Achilles responses. 6. Gait and coordination are normal. DIAGNOSTIC DATA: Nonenhanced CT scan revealed no evidence of acute intracranial process. Chest x-ray revealed no evidence of acute cardiopulmonary process. LABORATORY DATA: CBC revealed white blood cells of 6700, hemoglobin 14.5, hematocrit 40.9, platelet count 278,000. Chemistry revealed sodium of 142, potassium 3.6, chloride 105, CO2 28, BUN 12, creatinine 1.1, glucose 193, and calcium 7.8. IMPRESSION: 1. Possible brief to a syncopal attack, etiology uncertain, probably due to orthostatic hypotension. 2. Multiple medical problems include coronary artery disease, hypertension, hyperlipidemia, diabetes mellitus, history of stroke and transient ischemic attack. RECOMMENDATIONS: Continue with the current management initiated by Dr. Messer and with home medications. The patient is neurologically stable. M Erin CALIXTO MD DR: BELIA/alex JOB#: [id number] / [id number]
[2018-03-11] MEDS: LEVOTHYROXINE 100 MCG TABLET PO SCH (05:29)
[2018-03-11 05:35] VITALS: BP 129/78
[2018-03-11] MEDS: amLODIPine BESYLATE 5 MG TABLET PO SCH (08:53)
[2018-03-11] MEDS: CARVEDILOL 6.25 MG TABLET PO SCH (08:53)
[2018-03-11] MEDS: ASPIRIN ENTERIC COATED 325 MG TABLET.DR. PO SCH (08:53)
[2018-03-11] MEDS: glipiZIDE 5 MG TABLET PO SCH (08:53)
[2018-03-11] MEDS: INSULIN ASPART 300 UNITS/3 ML INSULN.PEN SQ SCH ×3 (08:55→17:14)
--- NOTE | 2018-03-11 10:31 | RAD ---
Duplex ultrasound carotid arteries. HISTORY: Syncopal episode, known history of carotid stenosis, history of previous right carotid endarterectomy Duplex ultrasound was used to evaluate the carotid arteries. On the left side the carotid artery is echogenic and has no flow with color imaging or Doppler consistent with common carotid and internal carotid artery occlusion on the left side. There is flow in the left vertebral artery with color imaging and spectral Doppler with antegrade flow. There is intimal thickening in the right common carotid artery with a fairly low velocity of 18 cm/s. There is hypoechoic and calcified plaque at the carotid bifurcation on the right side. There is increased velocity at the carotid bifurcation on the right with the peaks systolic velocity of 398 and a diastolic velocity of 216. There is increased velocity in the proximal right internal carotid artery with a peak velocity of 297 cm/s and a diastolic velocity of 89 cm/s. Systolic velocity index is 17.4 which is markedly elevated. There is antegrade flow in the right vertebral. IMPRESSION: 1. Occlusion of the left common and internal carotid arteries. 2. Severe stenosis at the right carotid bifurcation greater than [address] arteriogram could be of benefit. 3. Antegrade flow in both vertebrals. PQRS Compliance Statement - Stenosis calculations for carotid ultrasound studies are derived from validated velocity criteria which are known to correlate with the NASCET methodology. Electronically signed by: Valentin Mcnamara MD (03/11/2018 10:28 AM) [facility]
[2018-03-11 11:00] VITALS: BP 123/71
[2018-03-11] MEDS: IV NORMAL SALINE 1,000ML 1,000 ML IV SCH ×3 (12:45→22:45)
--- NOTE | 2018-03-11 13:42 | PDOC ---
PROGRESS NOTES Assessment 1. Syncope: Pt describes more leg weakness than pure syncope. I am going to get a CT of lumbar spine to r/o spinal stenosis. I reviewed pt's neurology office visit from a few weeks ago, and he reported some syncope to them as well. They ordered a cerebral arteriogram but pt has not set it up yet due to insurance issues (he has none). He was also advised to set up a 30 day Holter monitor through his supervisor coin machine, but he has not done that either for the same reason. So far here there have been no arrhythmias or syncopal episodes. Cardiology has cut down on his BB. We do not have the capability to do an arteriogram. I advised pt that he may have to f/u as an outpatient to get these procedures done. 2. Carotid artery stenosis: Dopplers done here confirm findings seen on CTA of neck in October, pt has a totally occluded left carotid and 75% occluded right carotid, which has been previously operated on w/ a CEA and subsequently stented. When he had the strokes in October, he had TPA. They did not recommend intervening on the right carotid again, but recommended optimal medical management instead. 3. Hypertriglyceridemia: In the 800 range. Pt is supposed to be on a statin ( hard to say if taken regularly). Could consider fenofibrate but have not been shown to reduce CV risk. Vascepa is an option but not if he can't afford it. Will consider fish oil, though that may raise LDL. Pt could also take OTC Niacin. 4. Cerebrovascular disease: Both ischemic and embolic due to JOHN. Continue aspirin. Would continue Plavix, but pt has a hard time affording medications as it is. 5. DM: Poorly controlled. Pt is on Lantus and a sulfonylurea. He has refused metformin in the past. 6. DVT proph: Heparin. 7. Disp: Will try to get as much workup done as we can while he is here, as I have concerns about him not getting done as outpatient. Plan of Care: see other orders Subjective Pt states he feels ok, has not had any "spells." Says his spells mostly consist of his legs getting weak and feeling warm. Says he occasionally passes out as well. Denies fever, chest pain, palpitations, SOA, new weakness or numbness. Denies n/v. Pt was constipated but says he is doing better now. Objective Vital Signs Date Time Temp Pulse Resp B/P (MAP) Pulse Ox O2 Delivery O2 Flow Rate FiO2 03/11/18 11:00 97.9 60 123/71 (88) 95 03/11/18 08:00 Room Air 03/11/18 05:35 16 Intake and Output 03/11/18 07:00 Intake Total 1510 ml Balance 1510 ml Intake Oral 960 ml IV Total 550 ml # Voids 6 Abdomen: Normal bowel sounds, Soft, No tenderness, No hepatospenomegaly, No masses Heart: Regular rate, Normal S1, Normal S2, No murmurs Extremities: No clubbing, No cyanosis, No edema, Normal pulses, No tenderness/ swelling General: Alert, Oriented X3, Cooperative, No acute distress HEENT: Atraumatic, PERRLA, EOMI, Mucous membr. moist/pink Lungs: Clear to auscultation, Normal air movement Neck: No JVD, No thyromegaly, No LAD Neuro: Strength at 5/5 X4 ext, Normal tone, Cranial nerves 3-12 NL Psych/Mental Status: Mental status NL, Mood NL Skin: No rashes Review of Relevant I have reviewed the following items mo (where applicable) has been applied. Labs Laboratory Tests Test 03/09/18 17:30 03/09/18 18:23 03/09/18 21:00 03/09/18 21:13 White Blood Count 6.5 x10^3/uL (4.0-11.0) Red Blood Count 5.09 x10^6/uL (4.30-5.70) Hemoglobin 14.3 g/dL (13.0-17.5) Hematocrit 41.1 % (39.0-53.0) Mean Corpuscular Volume 81 fL (79-100) Mean Corpuscular Hemoglobin 28 pg (25-35) Mean Corpuscular Hemoglobin Concent 35 g/dL (31-37) Red Cell Distribution Width 14.6 % (11.5-14.5) Platelet Count 278 x10^3/uL (140-400) Neutrophils (%) (Auto) 66 % (31-73) Lymphocytes (%) (Auto) 24 % (24-48) Monocytes (%) (Auto) 7 % (0-9) Eosinophils (%) (Auto) 2 % (0-3) Basophils (%) (Auto) 1 % (0-3) Neutrophils # (Auto) 4.3 x10^3uL (1.8-7.7) Lymphocytes # (Auto) 1.6 x10^3/uL (1.0-4.8) Monocytes # (Auto) 0.5 x10^3/uL (0.0-1.1) Eosinophils # (Auto) 0.1 x10^3/uL (0.0-0.7) Basophils # (Auto) 0.0 x10^3/uL (0.0-0.2) Prothrombin Time 10.4 SEC (9.4-11.4) Prothromb Time International Ratio 1.0 (0.9-1.1) Activated Partial Thromboplast Time 31 SEC (23-33) Sodium Level 140 mmol/L (136-145) Potassium Level 3.9 mmol/L (3.5-5.1) Chloride Level 101 mmol/L (98-107) Carbon Dioxide Level 31 mmol/L (21-32) Anion Gap 8 (6-14) Blood Urea Nitrogen 17 mg/dL (8-26) Creatinine 1.2 mg/dL (0.7-1.3) Estimated GFR (Cockcroft-Gault) 63.1 BUN/Creatinine Ratio 14 (6-20) Glucose Level 204 mg/dL (70-99) Calcium Level 8.3 mg/dL (8.5-10.1) Magnesium Level 2.2 mg/dL (1.8-2.4) Total Bilirubin 0.6 mg/dL (0.2-1.0) Aspartate Amino Transf (AST/SGOT) 26 U/L (15-37) Alanine Aminotransferase (ALT/SGPT) 45 U/L (16-63) Alkaline Phosphatase 72 U/L (46-116) Creatine Kinase 199 U/L (39-308) Creatine Kinase MB (Mass) 1.7 ng/mL (0.0-3.6) Creatine Kinase MB Relative Index 0.9 % (0-4) Troponin I Quantitative < 0.017 ng/mL (0-0.055) < 0.017 ng/mL (0-0.055) RU-Lmx-D-Type Natriuretic Peptide 45 pg/mL (0-124) Total Protein 6.9 g/dL (6.4-8.2) Albumin 3.8 g/dL (3.4-5.0) Albumin/Globulin Ratio 1.2 (1.0-1.7) Glucose (Fingerstick) 182 mg/dL (70-99) 124 mg/dL (70-99) Test 03/10/18 00:10 03/10/18 05:37 03/10/18 07:52 03/10/18 11:58 Troponin I Quantitative < 0.017 ng/mL (0-0.055) White Blood Count 6.7 x10^3/uL (4.0-11.0) Red Blood Count 5.04 x10^6/uL (4.30-5.70) Hemoglobin 14.5 g/dL (13.0-17.5) Hematocrit 40.9 % (39.0-53.0) Mean Corpuscular Volume 81 fL (79-100) Mean Corpuscular Hemoglobin 29 pg (25-35) Mean Corpuscular Hemoglobin Concent 36 g/dL (31-37) Red Cell Distribution Width 14.8 % (11.5-14.5) Platelet Count 278 x10^3/uL (140-400) Neutrophils (%) (Auto) 58 % (31-73) Lymphocytes (%) (Auto) 32 % (24-48) Monocytes (%) (Auto) 7 % (0-9) Eosinophils (%) (Auto) 2 % (0-3) Basophils (%) (Auto) 1 % (0-3) Neutrophils # (Auto) 3.9 x10^3uL (1.8-7.7) Lymphocytes # (Auto) 2.1 x10^3/uL (1.0-4.8) Monocytes # (Auto) 0.5 x10^3/uL (0.0-1.1) Eosinophils # (Auto) 0.1 x10^3/uL (0.0-0.7) Basophils # (Auto) 0.1 x10^3/uL (0.0-0.2) Sodium Level 142 mmol/L (136-145) Potassium Level 3.6 mmol/L (3.5-5.1) Chloride Level 105 mmol/L (98-107) Carbon Dioxide Level 28 mmol/L (21-32) Anion Gap 9 (6-14) Blood Urea Nitrogen 12 mg/dL (8-26) Creatinine 1.1 mg/dL (0.7-1.3) Estimated GFR (Cockcroft-Gault) 69.8 Glucose Level 193 mg/dL (70-99) Calcium Level 7.8 mg/dL (8.5-10.1) Triglycerides Level 894 mg/dL (0-150) Cholesterol Level 128 mg/dL (0-200) LDL Cholesterol, Calculated mg/dL (0-100) VLDL Cholesterol, Calculated 178 mg/dL (0-40) Non-HDL Cholesterol Calculated 108 mg/dL (0-129) HDL Cholesterol 20 mg/dL (40-60) Cholesterol/HDL Ratio 6.0 Thyroid Stimulating Hormone (TSH) 1.244 uIU/mL (0.358-3.740) Glucose (Fingerstick) 160 mg/dL (70-99) 180 mg/dL (70-99) Test 03/10/18 17:51 03/10/18 19:58 03/11/18 07:29 03/11/18 12:11 Glucose (Fingerstick) 101 mg/dL (70-99) 243 mg/dL (70-99) 112 mg/dL (70-99) 228 mg/dL (70-99) Medications Current Medications Sodium Chloride 1,000 ml @ 100 mls/hr Q10H IV Last administered on 03/09/18at 17:44; Start 03/09/18 at 16:51; Stop 03/09/18 at 20:46; Status DC Aspirin (Aspirin Enteric Coated) 325 mg DAILY PO Last administered on at 08:53; Start 03/10/18 at 09:00 Insulin Aspart (NovoLOG) 3 units TIDWMEALS SQ Last administered on 03/11/18at 13 :07; Start 03/10/18 at 08:00 Insulin Glargine (Lantus) 20 units QHS SQ Last administered on 03/10/18at 20:08 ; Start 03/09/18 at 21:00 Levothyroxine Sodium (Synthroid) 100 mcg DAILYAC PO Last administered on at 05:29; Start 03/10/18 at 07:30 Amlodipine Besylate (Norvasc) 5 mg DAILY PO Last administered on 03/11/18 08: 53; Start 03/10/18 at 09:00 Carvedilol (Coreg) 12.5 mg BIDWMEALS PO Last administered on 03/10/18 09:43; Start 03/10/18 at 08:00; Stop 03/10/18 at 10:35; Status DC Glipizide (Glucotrol) 10 mg DAILY08 PO Last administered on 03/11/18 08:53; Start 03/10/18 at 08:00 Atorvastatin Calcium (Lipitor) 20 mg QHS PO Last administered on 03/10/18 20: 07; Start 03/10/18 at 21:00 Enoxaparin Sodium (Lovenox) 40 mg Q24H SQ Last administered on 03/10/18 20:07 ; Start 03/09/18 at 21:00 Sodium Chloride 1,000 ml @ 100 mls/hr Q10H IV Last administered on 03/09/18at 21:20; Start 03/09/18 at 20:45 Carvedilol (Coreg) 6.25 mg BIDWMEALS PO Last administered on 03/11/18 08:53; Start 03/10/18 at 17:00 Active Scripts Active Reported Novolog Flexpen (Insulin Aspart) 100 Unit/1 Ml Insuln.pen 3 Unit SQ TIDWMEALS Aspirin Ec (Aspirin) 325 Mg Tablet.dr 325 Mg PO DAILY Livalo (Pitavastatin Calcium) 4 Mg Tablet 4 Mg PO QD Synthroid (Levothyroxine Sodium) 100 Mcg Tablet 100 Mcg PO DAILYAC Lantus Solostar (Insulin Glargine,Hum.rec.anlog) 100 Unit/1 Ml Insuln.pen 20 Unit SQ QHS Glipizide 10 Mg Tablet 10 Mg PO DAILY08 Coreg Cr (Carvedilol Phosphate) 40 Mg Cpmp.24hr 40 Mg PO DAILY Norvasc (Amlodipine Besylate) 5 Mg Tablet 5 Mg PO DAILY Vitals/I & O Vital Sign - Last 24 Hours 03/10/18 03/10/18 03/10/18 03/10/18 17:47 18:15 18:15 18:16 Pulse 63 60 59 63 B/P (MAP) 120/80 113/79 (90) 130/86 (101) 120/80 (93) 503/10/18 03/10/18 03/11/18 19:32 20:17 22:45 05:35 Temp 98.3 97.8 Pulse 56 57 63 Resp 16 18 16 B/P (MAP) 129/76 (93) 158/73 (101) 129/78 (95) Pulse Ox 95 96 94 O2 Delivery Room Air Room Air Room Air Room Air 03/11/18 03/11/18 03/11/18 03/11/18 08:00 08:53 08:53 11:00 Temp 97.9 Pulse 63 63 60 B/P (MAP) 129/78 129/78 123/71 (88) Pulse Ox 95 O2 Delivery Room Air Intake and Output 03/10/18 03/10/18 03/11/18 15:00 23:00 07:00 Intake Total 550 ml 600 ml 360 ml Balance 550 ml 600 ml 360 ml Images Duplex ultrasound carotid arteries. HISTORY: Syncopal episode, known history of carotid stenosis, history of previous right carotid endarterectomy Duplex ultrasound was used to evaluate the carotid arteries. On the left side the carotid artery is echogenic and has no flow with color imaging or Doppler consistent with common carotid and internal carotid artery occlusion on the left side. There is flow in the left vertebral artery with color imaging and spectral Doppler with antegrade flow. There is intimal thickening in the right common carotid artery with a fairly low velocity of 18 cm/s. There is hypoechoic and calcified plaque at the carotid bifurcation on the right side. There is increased velocity at the carotid bifurcation on the right with the peaks systolic velocity of 398 and a diastolic velocity of 216. There is increased velocity in the proximal right internal carotid artery with a peak velocity of 297 cm/s and a diastolic velocity of 89 cm/s. Systolic velocity index is 17.4 which is markedly elevated. There is antegrade flow in the right vertebral. IMPRESSION: 1. Occlusion of the left common and internal carotid arteries. 2. Severe stenosis at the right carotid bifurcation greater than [address] arteriogram could be of benefit. 3. Antegrade flow in both vertebrals. SHORTY WASSERMAN MD March 11, 2018 13:42
--- NOTE | 2018-03-11 14:52 | PDOC ---
PROGRESS NOTES Diagnosis Problem Problems Medical Problems: (1) CAD (coronary artery disease) Status: Acute (2) Cerebrovascular disease Status: Acute (3) Syncope Status: Acute Assessment 1. Near syncope without any loss of consciousness. Telemetry did not show any significant arrhythmia so far. Beta gordy dose decreased secondary to bradycardia. 2-D echo showed normal LV systolic function without any significant structural abnormalities. Plan for event monitor as an outpatient. 2. CAD - Prior MN and PCI/stent to LAD by patient history. request records. Reported infrequent chest pain appears atypical in nature. Currently angina free. MN is ruled out. 2-D echo did not show any wall motion abnormalities. Plan for outpatient stress test for ischemic evaluation. 3. Carotid artery stenosis s/p CVA/stenting. Patient denied any further TIA/ CVA. Continue current medications including Plavix 4. HTN - controlled on current Rx 5. HLD - continue statin triglycerides elevated. Agree with fish oil for now and consider initiation of fibrates. 6. Diabetes mellitus type 2- per PCP Subjective Patient feels better today. Objective Vital Signs Date Time Temp Pulse Resp B/P (MAP) Pulse Ox O2 Delivery O2 Flow Rate FiO2 03/11/18 11:00 97.9 60 123/71 (88) 95 03/11/18 08:00 Room Air 03/11/18 05:35 16 Intake and Output 03/11/18 07:00 Intake Total 1510 ml Balance 1510 ml Intake Oral 960 ml IV Total 550 ml # Voids 6 Abdomen: Soft Heart: Regular rate Extremities: No clubbing, No edema General: Alert, No acute distress HEENT: Atraumatic Lungs: Clear to auscultation Neck: Supple Psych/Mental Status: Mood NL Review of Relevant I have reviewed the following items mo (where applicable) has been applied. Labs Laboratory Tests Test 03/09/18 17:30 03/09/18 18:23 03/09/18 21:00 03/09/18 21:13 White Blood Count 6.5 x10^3/uL (4.0-11.0) Red Blood Count 5.09 x10^6/uL (4.30-5.70) Hemoglobin 14.3 g/dL (13.0-17.5) Hematocrit 41.1 % (39.0-53.0) Mean Corpuscular Volume 81 fL (79-100) Mean Corpuscular Hemoglobin 28 pg (25-35) Mean Corpuscular Hemoglobin Concent 35 g/dL (31-37) Red Cell Distribution Width 14.6 % (11.5-14.5) Platelet Count 278 x10^3/uL (140-400) Neutrophils (%) (Auto) 66 % (31-73) Lymphocytes (%) (Auto) 24 % (24-48) Monocytes (%) (Auto) 7 % (0-9) Eosinophils (%) (Auto) 2 % (0-3) Basophils (%) (Auto) 1 % (0-3) Neutrophils # (Auto) 4.3 x10^3uL (1.8-7.7) Lymphocytes # (Auto) 1.6 x10^3/uL (1.0-4.8) Monocytes # (Auto) 0.5 x10^3/uL (0.0-1.1) Eosinophils # (Auto) 0.1 x10^3/uL (0.0-0.7) Basophils # (Auto) 0.0 x10^3/uL (0.0-0.2) Prothrombin Time 10.4 SEC (9.4-11.4) Prothromb Time International Ratio 1.0 (0.9-1.1) Activated Partial Thromboplast Time 31 SEC (23-33) Sodium Level 140 mmol/L (136-145) Potassium Level 3.9 mmol/L (3.5-5.1) Chloride Level 101 mmol/L (98-107) Carbon Dioxide Level 31 mmol/L (21-32) Anion Gap 8 (6-14) Blood Urea Nitrogen 17 mg/dL (8-26) Creatinine 1.2 mg/dL (0.7-1.3) Estimated GFR (Cockcroft-Gault) 63.1 BUN/Creatinine Ratio 14 (6-20) Glucose Level 204 mg/dL (70-99) Calcium Level 8.3 mg/dL (8.5-10.1) Magnesium Level 2.2 mg/dL (1.8-2.4) Total Bilirubin 0.6 mg/dL (0.2-1.0) Aspartate Amino Transf (AST/SGOT) 26 U/L (15-37) Alanine Aminotransferase (ALT/SGPT) 45 U/L (16-63) Alkaline Phosphatase 72 U/L (46-116) Creatine Kinase 199 U/L (39-308) Creatine Kinase MB (Mass) 1.7 ng/mL (0.0-3.6) Creatine Kinase MB Relative Index 0.9 % (0-4) Troponin I Quantitative < 0.017 ng/mL (0-0.055) < 0.017 ng/mL (0-0.055) GD-Knp-[id number]-Type Natriuretic Peptide 45 pg/mL (0-124) Total Protein 6.9 g/dL (6.4-8.2) Albumin 3.8 g/dL (3.4-5.0) Albumin/Globulin Ratio 1.2 (1.0-1.7) Glucose (Fingerstick) 182 mg/dL (70-99) 124 mg/dL (70-99) Test 03/10/18 00:10 03/10/18 05:37 03/10/18 07:52 03/10/18 11:58 Troponin I Quantitative < 0.017 ng/mL (0-0.055) White Blood Count 6.7 x10^3/uL (4.0-11.0) Red Blood Count 5.04 x10^6/uL (4.30-5.70) Hemoglobin 14.5 g/dL (13.0-17.5) Hematocrit 40.9 % (39.0-53.0) Mean Corpuscular Volume 81 fL (79-100) Mean Corpuscular Hemoglobin 29 pg (25-35) Mean Corpuscular Hemoglobin Concent 36 g/dL (31-37) Red Cell Distribution Width 14.8 % (11.5-14.5) Platelet Count 278 x10^3/uL (140-400) Neutrophils (%) (Auto) 58 % (31-73) Lymphocytes (%) (Auto) 32 % (24-48) Monocytes (%) (Auto) 7 % (0-9) Eosinophils (%) (Auto) 2 % (0-3) Basophils (%) (Auto) 1 % (0-3) Neutrophils # (Auto) 3.9 x10^3uL (1.8-7.7) Lymphocytes # (Auto) 2.1 x10^3/uL (1.0-4.8) Monocytes # (Auto) 0.5 x10^3/uL (0.0-1.1) Eosinophils # (Auto) 0.1 x10^3/uL (0.0-0.7) Basophils # (Auto) 0.1 x10^3/uL (0.0-0.2) Sodium Level 142 mmol/L (136-145) Potassium Level 3.6 mmol/L (3.5-5.1) Chloride Level 105 mmol/L (98-107) Carbon Dioxide Level 28 mmol/L (21-32) Anion Gap 9 (6-14) Blood Urea Nitrogen 12 mg/dL (8-26) Creatinine 1.1 mg/dL (0.7-1.3) Estimated GFR (Cockcroft-Gault) 69.8 Glucose Level 193 mg/dL (70-99) Calcium Level 7.8 mg/dL (8.5-10.1) Triglycerides Level 894 mg/dL (0-150) Cholesterol Level 128 mg/dL (0-200) LDL Cholesterol, Calculated mg/dL (0-100) VLDL Cholesterol, Calculated 178 mg/dL (0-40) Non-HDL Cholesterol Calculated 108 mg/dL (0-129) HDL Cholesterol 20 mg/dL (40-60) Cholesterol/HDL Ratio 6.0 Thyroid Stimulating Hormone (TSH) 1.244 uIU/mL (0.358-3.740) Glucose (Fingerstick) 160 mg/dL (70-99) 180 mg/dL (70-99) Test 03/10/18 17:51 03/10/18 19:58 03/11/18 07:29 03/11/18 12:11 Glucose (Fingerstick) 101 mg/dL (70-99) 243 mg/dL (70-99) 112 mg/dL (70-99) 228 mg/dL (70-99) Medications Current Medications Sodium Chloride 1,000 ml @ 100 mls/hr Q10H IV Last administered on 03/09/18at 17:44; Start 03/09/18 at 16:51; Stop 03/09/18 at 20:46; Status DC Aspirin (Aspirin Enteric Coated) 325 mg DAILY PO Last administered on at 08:53; Start 03/10/18 at 09:00 Insulin Aspart (NovoLOG) 3 units TIDWMEALS SQ Last administered on 03/11/18at 13 :07; Start 03/10/18 at 08:00 Insulin Glargine (Lantus) 20 units QHS SQ Last administered on 03/10/18at 20:08 ; Start 03/09/18 at 21:00 Levothyroxine Sodium (Synthroid) 100 mcg DAILYAC PO Last administered on 05:29; Start 03/10/18 at 07:30 Amlodipine Besylate (Norvasc) 5 mg DAILY PO Last administered on 03/11/18 08: 53; Start 03/10/18 at 09:00 Carvedilol (Coreg) 12.5 mg BIDWMEALS PO Last administered on 03/10/18at 09:43; Start 03/10/18 at 08:00; Stop 03/10/18 at 10:35; Status DC Glipizide (Glucotrol) 10 mg DAILY08 PO Last administered on 03/11/18 08:53; Start 03/10/18 at 08:00 Atorvastatin Calcium (Lipitor) 20 mg QHS PO Last administered on 03/10/18at 20: 07; Start 03/10/18 at 21:00; Stop 03/11/18 at 13:45; Status DC Enoxaparin Sodium (Lovenox) 40 mg Q24H SQ Last administered on 03/10/18 20:07 ; Start 03/09/18 at 21:00 Sodium Chloride 1,000 ml @ 100 mls/hr Q10H IV Last administered on 03/09/18at 21:20; Start 03/09/18 at 20:45 Carvedilol (Coreg) 6.25 mg BIDWMEALS PO Last administered on 03/11/18 08:53; Start 03/10/18 at 17:00; Stop 03/11/18 at 13:45; Status DC Atorvastatin Calcium (Lipitor) 40 mg QHS PO ; Start 03/11/18 at 21:00 Carvedilol (Coreg) 3.125 mg BIDWMEALS PO ; Start 03/11/18 at 17:00 Active Scripts Active Reported Novolog Flexpen (Insulin Aspart) 100 Unit/1 Ml Insuln.pen 3 Unit SQ TIDWMEALS Aspirin Ec (Aspirin) 325 Mg Tablet.dr 325 Mg PO DAILY Livalo (Pitavastatin Calcium) 4 Mg Tablet 4 Mg PO QD Synthroid (Levothyroxine Sodium) 100 Mcg Tablet 100 Mcg PO DAILYAC Lantus Solostar (Insulin Glargine,Hum.rec.anlog) 100 Unit/1 Ml Insuln.pen 20 Unit SQ QHS Glipizide 10 Mg Tablet 10 Mg PO DAILY08 Coreg Cr (Carvedilol Phosphate) 40 Mg Cpmp.24hr 40 Mg PO DAILY Norvasc (Amlodipine Besylate) 5 Mg Tablet 5 Mg PO DAILY Vitals/I & O Vital Sign - Last 24 Hours 03/10/18 03/10/18 03/10/18 03/10/18 17:47 18:15 18:15 18:16 Pulse 63 60 59 63 B/P (MAP) 120/80 113/79 (90) 130/86 (101) 120/80 (93) 03/10/18 03/10/18 03/10/18 03/11/18 19:32 20:17 22:45 05:35 Temp 98.3 97.8 Pulse 56 57 63 Resp 16 18 16 B/P (MAP) 129/76 (93) 158/73 (101) 129/78 (95) Pulse Ox 95 96 94 O2 Delivery Room Air Room Air Room Air Room Air 03/11/18 03/11/18 03/11/18 03/11/18 08:00 08:53 08:53 11:00 Temp 97.9 Pulse 63 63 60 B/P (MAP) 129/78 129/78 123/71 (88) Pulse Ox 95 O2 Delivery Room Air Intake and Output 03/10/18 03/10/18 03/11/18 15:00 23:00 07:00 Intake Total 550 ml 600 ml 360 ml Balance 550 ml 600 ml 360 ml ZABRINA PERLA MD March 11, 2018 14:52
[2018-03-11 15:10] VITALS: BP 145/94
--- NOTE | 2018-03-11 15:14 | RAD ---
EXAM: Lumbar spine CT without contrast. HISTORY: Weakness. TECHNIQUE: Computed tomographic images of the lumbar spine were obtained without contrast. Multiplanar reformatting was performed. *One or more of the following individualized dose reduction techniques were utilized for this examination: 1. Automated exposure control. 2. Adjustment of the mA and/or kV according to patient size. 3. Use of iterative reconstruction technique. COMPARISON: None. FINDINGS: There is mild lumbar scoliosis and hyperlordosis. There is minimal grade 1 anterolisthesis of L5 on S1, measuring 2 mm. There is a right pars interarticularis defect at this level. There is degenerative endplate remodeling at multiple levels. There are a few endplate Schmorl's nodes the largest of which is within the inferior endplate of T12. There is focal outpouching of the right posterior lateral aspect of the infrarenal abdominal aorta at the level of L3-L4, likely due to focal ectasia rather than a penetrating atherosclerotic ulcer. There is no suspicious lytic or sclerotic osseous lesion. At L1-L2, there is no stenosis. At L2-L3, there is a disc bulge. There is no stenosis. At L3-L4, there is a left posterior lateral predominant disc bulge and endplate remodeling. There is mild right and moderate left foraminal stenosis. There is minimal central canal stenosis. At L4-L5, there is a disc bulge and endplate remodeling. There is [id number] left facet arthropathy. There is no stenosis. At L5-S1, there is a disc bulge and endplate remodeling. There is no stenosis. IMPRESSION: 1. Minimal grade 1 anterolisthesis of L5 on S1 with a right pars interarticularis defects. 2. Multilevel degenerative change of the lumbar spine, described above. This results in mild right and moderate left foraminal stenosis at L3-L4. 3. Focal outpouching of the infrarenal abdominal aorta at the level of L3-L4, measuring 2.3 cm in caliber and likely due to focal ectasia rather than a penetrating atherosclerotic ulcer. Electronically signed by: Felipa Kraus MD (03/11/2018 3:11 PM) [facility] [place]
[2018-03-11] MEDS: CARVEDILOL 3.125 MG TABLET PO SCH (17:11)
[2018-03-11] MEDS: ATORVASTATIN CALCIUM 20 MG TABLET PO SCH (20:37)
[2018-03-11] MEDS: ENOXAPARIN 40 MG/0.4 ML SYRINGE. SQ SCH (20:38)
[2018-03-11] MEDS: INSULIN GLARGINE 300 UNITS/3 ML INSULN.PEN. SQ SCH (20:54)
[2018-03-11 21:30] VITALS: BP 155/79
[2018-03-12 06:13] VITALS: BP 113/71
[2018-03-12 07:07] LABS: ALBUMIN 3.2 g/dL (3.4-5.0); ALBUMIN/GLOBULIN RATIO 1.1 (1.0-1.7); CALCIUM 8.3 mg/dL (8.5-10.1); CREATININE 1.3 mg/dL (0.7-1.3); GFR 57.5; POTASSIUM 3.6 mmol/L (3.5-5.1); TOTAL BILIRUBIN 0.5 mg/dL (0.2-1.0); TOTAL PROTEIN 6.2 g/dL (6.4-8.2)
[2018-03-12] MEDS: ASPIRIN ENTERIC COATED 325 MG TABLET.DR. PO SCH (08:01)
[2018-03-12] MEDS: LEVOTHYROXINE 100 MCG TABLET PO SCH (08:02)
[2018-03-12] MEDS: glipiZIDE 5 MG TABLET PO SCH (08:02)
[2018-03-12] MEDS: amLODIPine BESYLATE 5 MG TABLET PO SCH (08:04)
[2018-03-12] MEDS: CARVEDILOL 3.125 MG TABLET PO SCH ×2 (08:04→17:01)
[2018-03-12] MEDS: INSULIN ASPART 300 UNITS/3 ML INSULN.PEN SQ SCH ×3 (08:13→17:05)
[2018-03-12] MEDS: IV NORMAL SALINE 1,000ML 1,000 ML IV SCH ×2 (08:45→18:35)
[2018-03-12 10:51] VITALS: BP 153/86
--- NOTE | 2018-03-12 14:18 | PDOC ---
PROGRESS NOTES Assessment 1. Syncope: Pt describes more leg weakness than pure syncope, but in reality it is more likely to be syncope. CT of lumbar spine was negative for severe spinal stenosis. I reviewed pt's neurology office visit from a few weeks ago, and he reported some syncope to them as well. They ordered a cerebral arteriogram but pt has not set it up yet due to insurance issues (he has none). 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 So far here there have been no arrhythmias or syncopal episodes. Cardiology has cut down on his BB. We do not have the capability to do an arteriogram. I advised pt that he may have to f/u as an outpatient to get these procedures done. Hopefully CM tomorrow will be able to help arrange f/u. 2. Carotid artery stenosis: Dopplers done here confirm findings seen on CTA of neck in October, pt has a totally occluded left carotid and 75% occluded right carotid, which has been previously operated on w/ a CEA and subsequently stented. When he had the strokes in October, he had TPA. They did not recommend intervening on the right carotid again, but recommended optimal medical management instead. 3. Hypertriglyceridemia: In the 800 range. Pt is supposed to be on a statin ( hard to say if taken regularly). Could consider fenofibrate but have not been shown to reduce CV risk. Vascepa is an option but not if he can't afford it. Will start fish oil, though that may raise LDL. Pt could also take OTC Niacin. 4. Cerebrovascular disease: Both ischemic and embolic due to JOHN. Continue aspirin. Would continue Plavix, but it was not recommended when he saw neurology most recently, and pt has a hard time affording medications as it is. 5. DM: Poorly controlled. Pt is on Lantus and a sulfonylurea. He has refused metformin in the past. 6. DVT proph: Heparin. 7. Disp: Will try to get as much workup done as we can while he is here, as I have concerns about him not getting done as outpatient. Plan of Care: see other orders Subjective Pt states he feels "sweet" today. Says breakfast made his blood sugars go up. Denies any new syncopal episodes or ROBLES. No chest pain or palpitations. Denies SOA. Denies new numbness or weakness. Denies hematuria. Denies nv/ Objective Vital Signs Date Time Temp Pulse Resp B/P (MAP) Pulse Ox O2 Delivery O2 Flow Rate FiO2 03/12/18 10:51 59 153/86 (108) 96 Room Air 03/12/18 06:13 97.4 20 Intake and Output 03/12/18 07:00 Intake Total 840 ml Balance 840 ml Intake Oral 840 ml # Voids 2 Abdomen: Normal bowel sounds, Soft, No tenderness, No hepatospenomegaly, No masses Heart: Regular rate, Normal S1, Normal S2, No murmurs Extremities: No edema, Normal pulses, No tenderness/swelling General: Alert, Oriented X3, Cooperative, No acute distress HEENT: Atraumatic, PERRLA, EOMI, Mucous membr. moist/pink Lungs: Clear to auscultation, Normal air movement Neck: No JVD, No thyromegaly, No LAD Neuro: Normal speech, Strength at 5/5 X4 ext, Normal tone, Cranial nerves 3-12 NL Psych/Mental Status: Mental status NL, Mood NL Skin: No rashes Review of Relevant I have reviewed the following items mo (where applicable) has been applied. Labs Laboratory Tests Test 03/10/18 17:51 03/10/18 19:58 03/11/18 07:29 03/11/18 12:11 Glucose (Fingerstick) 101 mg/dL (70-99) 243 mg/dL (70-99) 112 mg/dL (70-99) 228 mg/dL (70-99) Test 03/11/18 16:45 03/11/18 19:57 03/12/18 06:14 03/12/18 07:29 Glucose (Fingerstick) 149 mg/dL (70-99) 173 mg/dL (70-99) 101 mg/dL (70-99) Sodium Level 142 mmol/L (136-145) Potassium Level 3.6 mmol/L (3.5-5.1) Chloride Level 104 mmol/L (98-107) Carbon Dioxide Level 30 mmol/L (21-32) Anion Gap 8 (6-14) Blood Urea Nitrogen 13 mg/dL (8-26) Creatinine 1.3 mg/dL (0.7-1.3) Estimated GFR (Cockcroft-Gault) 57.5 BUN/Creatinine Ratio 10 (6-20) Glucose Level 106 mg/dL (70-99) Calcium Level 8.3 mg/dL (8.5-10.1) Total Bilirubin 0.5 mg/dL (0.2-1.0) Aspartate Amino Transf (AST/SGOT) 18 U/L (15-37) Alanine Aminotransferase (ALT/SGPT) 45 U/L (16-63) Alkaline Phosphatase 73 U/L (46-116) Total Protein 6.2 g/dL (6.4-8.2) Albumin 3.2 g/dL (3.4-5.0) Albumin/Globulin Ratio 1.1 (1.0-1.7) Test 03/12/18 11:14 Glucose (Fingerstick) 231 mg/dL (70-99) Medications Current Medications Sodium Chloride 1,000 ml @ 100 mls/hr Q10H IV Last administered on 03/09/18at 17:44; Start 03/09/18 at 16:51; Stop 03/09/18 at 20:46; Status DC Aspirin (Aspirin Enteric Coated) 325 mg DAILY PO Last administered on at 08:01; Start 03/10/18 at 09:00 Insulin Aspart (NovoLOG) 3 units TIDWMEALS SQ Last administered on 03/12/18at 12 :09; Start 03/10/18 at 08:00 Insulin Glargine (Lantus) 20 units QHS SQ Last administered on 03/11/18at 20:54 ; Start 03/09/18 at 21:00 Levothyroxine Sodium (Synthroid) 100 mcg DAILYAC PO Last administered on at 08:02; Start 03/10/18 at 07:30 Amlodipine Besylate (Norvasc) 5 mg DAILY PO Last administered on 03/12/18 08: 04; Start 03/10/18 at 09:00 Carvedilol (Coreg) 12.5 mg BIDWMEALS PO Last administered on 03/10/18at 09:43; Start 03/10/18 at 08:00; Stop 03/10/18 at 10:35; Status DC Glipizide (Glucotrol) 10 mg DAILY08 PO Last administered on 03/12/18at 08:02; Start 03/10/18 at 08:00 Atorvastatin Calcium (Lipitor) 20 mg QHS PO Last administered on 03/10/18at 20: 07; Start 03/10/18 at 21:00; Stop 03/11/18 at 13:45; Status DC Enoxaparin Sodium (Lovenox) 40 mg Q24H SQ Last administered on 03/11/18at 20:38 ; Start 03/09/18 at 21:00 Sodium Chloride 1,000 ml @ 100 mls/hr Q10H IV Last administered on 03/09/18at 21:20; Start 03/09/18 at 20:45 Carvedilol (Coreg) 6.25 mg BIDWMEALS PO Last administered on 03/11/18at 08:53; Start 03/10/18 at 17:00; Stop 03/11/18 at 13:45; Status DC Atorvastatin Calcium (Lipitor) 40 mg QHS PO Last administered on 03/11/18at 20: 37; Start 03/11/18 at 21:00 Carvedilol (Coreg) 3.125 mg BIDWMEALS PO Last administered on 03/12/18at 08:04; Start 03/11/18 at 17:00 Active Scripts Active Reported Novolog Flexpen (Insulin Aspart) 100 Unit/1 Ml Insuln.pen 3 Unit SQ TIDWMEALS Aspirin Ec (Aspirin) 325 Mg Tablet.dr 325 Mg PO DAILY Livalo (Pitavastatin Calcium) 4 Mg Tablet 4 Mg PO QD Synthroid (Levothyroxine Sodium) 100 Mcg Tablet 100 Mcg PO DAILYAC Lantus Solostar (Insulin Glargine,Hum.rec.anlog) 100 Unit/1 Ml Insuln.pen 20 Unit SQ QHS Glipizide 10 Mg Tablet 10 Mg PO DAILY08 Coreg Cr (Carvedilol Phosphate) 40 Mg Cpmp.24hr 40 Mg PO DAILY Norvasc (Amlodipine Besylate) 5 Mg Tablet 5 Mg PO DAILY Vitals/I & O Vital Sign - Last 24 Hours 03/11/18 03/11/18 03/11/18 03/11/18 15:10 17:11 20:22 21:30 Temp 98.1 98.2 Pulse 60 60 61 Resp 18 20 B/P (MAP) 145/94 (111) 145/94 155/79 (104) Pulse Ox 95 94 O2 Delivery Room Air Room Air Room Air 03/12/18 03/12/18 03/12/18 03/12/18 06:13 08:00 08:04 08:04 Temp 97.4 Pulse 53 53 60 Resp 20 B/P (MAP) 113/71 (85) 113/71 113/71 Pulse Ox 94 O2 Delivery Room Air Room Air 03/12/18 10:51 Pulse 59 B/P (MAP) 153/86 (108) Pulse Ox 96 O2 Delivery Room Air Intake and Output 03/11/18 03/11/18 03/12/18 15:00 23:00 07:00 Intake Total 480 ml 360 ml Balance 480 ml 360 ml Images EXAM: Lumbar spine CT without contrast. HISTORY: Weakness. TECHNIQUE: Computed tomographic images of the lumbar spine were obtained without contrast. Multiplanar reformatting was performed. *One or more of the following individualized dose reduction techniques were utilized for this examination: 1. Automated exposure control. 2. Adjustment of the mA and/or kV according to patient size. 3. Use of iterative reconstruction technique. COMPARISON: None. FINDINGS: There is mild lumbar scoliosis and hyperlordosis. There is minimal grade 1 anterolisthesis of L5 on S1, measuring 2 mm. There is a right pars interarticularis defect at this level. There is degenerative endplate remodeling at multiple levels. There are a few endplate Schmorl's nodes the largest of which is within the inferior endplate of T12. There is focal outpouching of the right posterior lateral aspect of the infrarenal abdominal aorta at the level of L3-L4, likely due to focal ectasia rather than a penetrating atherosclerotic ulcer. There is no suspicious lytic or sclerotic osseous lesion. At L1-L2, there is no stenosis. At L2-L3, there is a disc bulge. There is no stenosis. At L3-L4, there is a left posterior lateral predominant disc bulge and endplate remodeling. There is mild right and moderate left foraminal stenosis. There is minimal central canal stenosis. At L4-L5, there is a disc bulge and endplate remodeling. There is [id number] left facet arthropathy. There is no stenosis. At L5-S1, there is a disc bulge and endplate remodeling. There is no stenosis. IMPRESSION: 1. Minimal grade 1 anterolisthesis of L5 on S1 with a right pars interarticularis defects. 2. Multilevel degenerative change of the lumbar spine, described above. This results in mild right and moderate left foraminal stenosis at L3-L4. 3. Focal outpouching of the infrarenal abdominal aorta at the level of L3-L4, measuring 2.3 cm in caliber and likely due to focal ectasia rather than a penetrating atherosclerotic ulcer. SHORTY WASSERMAN MD March 12, 2018 14:18
[2018-03-12 14:27] VITALS: BP 163/88
--- NOTE | 2018-03-12 17:07 | RAD ---
CT arteriogram of the carotid arteries, CT arteriogram of the brain. HISTORY: Carotid stenosis with history of stroke CT arteriogram of the carotid arteries CT arteriogram was done using 75 mL Isovue-370 contrast. Sagittal and coronal MIP images were reconstructed. The visualized portions of the upper lobes of the lungs are clear. There is complete occlusion of the left common carotid artery at the aortic arch. There is mild plaque in the left subclavian artery with less than 50 percent stenosis. Vertebral arteries are of normal size without stenosis. Both vertebral arteries supply flow to the basilar artery. There is moderate hypodense plaque at the distal common carotid artery on the right. There is severe stenosis at the carotid bifurcation on the right, the artifacts off the surgical clips from the prior surgery make evaluation more difficult. IMPRESSION: 1. Normal vertebral arteries. 2. Complete occlusion of the left common carotid artery and internal carotid artery. 3. Severe stenosis at the right carotid bifurcation. PQRS Compliance Statement - Stenosis calculations for CT angiography are based upon measurement of the distal ICA diameter in accordance with the NASCET methodology. End impression CT arteriogram of the brain CT arteriogram of the brain was done in conjunction with the CT arteriogram of the carotid arteries with the same contrast. Sagittal and coronal MIP images were reconstructed. Vertebral arteries are normal and both supply flow to the basilar artery. Basilar artery is a normal appearance. Both posterior cerebral arteries are supplied by the basilar artery. There is not a prominent posterior communicating artery. Right internal carotid artery has mild to moderate plaque at the carotid siphon without severe stenosis. There is a normal A1 segment of the right anterior cerebral. There is a normal anterior communicating artery which supplies flow to the anterior cerebral on the left. There is some flow in the very distal left internal carotid artery which could be supplied by retrograde flow through the ophthalmic, the vessel is very small. The A1 segment of the anterior cerebral artery is irregular possibly partially thrombosed. There is some contrast in the left middle cerebral vessels. There is no aneurysm at the [place]. Major infarct is not identified. IMPRESSION: 1. Occlusion of the left internal carotid artery with reconstitution from ophthalmic vessels and across the anterior communicating artery. 2. No intracranial aneurysm noted.. 3. Vertebral arteries and basilar artery unremarkable. Electronically signed by: Valentin Mcnamara MD (03/12/2018 5:04 PM) [facility]
[2018-03-12 19:10] VITALS: BP 158/70
[2018-03-12] MEDS: ENOXAPARIN 40 MG/0.4 ML SYRINGE. SQ SCH (19:50)
[2018-03-12] MEDS: ATORVASTATIN CALCIUM 20 MG TABLET PO SCH (19:50)
[2018-03-12] MEDS: INSULIN GLARGINE 300 UNITS/3 ML INSULN.PEN. SQ SCH (19:55)
[2018-03-12 23:09] VITALS: BP 176/75
[2018-03-13] MEDS: IV NORMAL SALINE 1,000ML 1,000 ML IV SCH (04:45)
[2018-03-13] MEDS: LEVOTHYROXINE 100 MCG TABLET PO SCH (05:41)
[2018-03-13 06:04] VITALS: BP 149/88
[2018-03-13] MEDS: ASPIRIN ENTERIC COATED 325 MG TABLET.DR. PO SCH (08:04)
[2018-03-13] MEDS: amLODIPine BESYLATE 5 MG TABLET PO SCH (08:04)
[2018-03-13] MEDS: CARVEDILOL 3.125 MG TABLET PO SCH (08:04)
[2018-03-13] MEDS: glipiZIDE 5 MG TABLET PO SCH (08:04)
[2018-03-13] MEDS: INSULIN ASPART 300 UNITS/3 ML INSULN.PEN SQ SCH ×2 (08:05→12:00)
[2018-03-13] MEDS ORDERED: OMEGA-3 FATTY ACIDS/FISH OIL 1,000 MG CAPSULE. PO SCH (09:00)
--- NOTE | 2018-03-13 09:29 | PDOC ---
PROGRESS NOTES Diagnosis Problem Problems Medical Problems: (1) CAD (coronary artery disease) Status: Acute (2) Cerebrovascular disease Status: Acute (3) Syncope Status: Acute Assessment Problems Medical Problems: (1) CAD (coronary artery disease) Status: Acute (2) Cerebrovascular disease Status: Acute (3) Syncope Status: Acute Assessment 1. Near syncope without any loss of consciousness. Telemetry did not show any significant arrhythmia. Bradycardia improved with reduction of beta gordy. Normal LV function and wall motion by echo. Outpatient event monitor. 2. CAD - Prior MT and PCI/stent to LAD by patient history. requested records. infrequent atypical chest pain, none since in hospital. MT is ruled out. Plan for outpatient stress test for ischemic evaluation. 3. Carotid artery stenosis s/p CVA/stenting. Patient denied any further TIA/ CVA. Continue current medications including Plavix 4. HTN - controlled on current Rx 5. HLD - continue statin triglycerides elevated. Agree with fish oil for now and consider initiation of fibrates. 6. Diabetes mellitus type 2- per PCP Subjective no chest pain, no lightheadedness or dizziness, no palpitations. Objective Vital Signs Date Time Temp Pulse Resp B/P (MAP) Pulse Ox O2 Delivery O2 Flow Rate FiO2 03/13/18 08:04 56 149/88 03/13/18 08:00 Room Air 03/13/18 06:04 98.3 18 97 Intake and Output 03/13/18 07:00 Intake Total 2500 ml Balance 2500 ml Intake Oral 2500 ml # Voids 7 Abdomen: Normal bowel sounds, Soft, No tenderness Heart: Regular rate, Normal S1, Normal S2 Extremities: No cyanosis, No edema, Normal pulses General: Alert, Oriented X3, Cooperative, No acute distress Lungs: Clear to auscultation Neuro: Strength at 03/04 X4 ext Psych/Mental Status: Mental status NL, Mood NL Review of Relevant I have reviewed the following items mo (where applicable) has been applied. Labs Laboratory Tests Test 03/11/18 12:11 03/11/18 16:45 03/11/18 19:57 03/12/18 06:14 Glucose (Fingerstick) 228 mg/dL (70-99) 149 mg/dL (70-99) 173 mg/dL (70-99) Sodium Level 142 mmol/L (136-145) Potassium Level 3.6 mmol/L (3.5-5.1) Chloride Level 104 mmol/L (98-107) Carbon Dioxide Level 30 mmol/L (21-32) Anion Gap 8 (6-14) Blood Urea Nitrogen 13 mg/dL (8-26) Creatinine 1.3 mg/dL (0.7-1.3) Estimated GFR (Cockcroft-Gault) 57.5 BUN/Creatinine Ratio 10 (6-20) Glucose Level 106 mg/dL (70-99) Calcium Level 8.3 mg/dL (8.5-10.1) Total Bilirubin 0.5 mg/dL (0.2-1.0) Aspartate Amino Transf (AST/SGOT) 18 U/L (15-37) Alanine Aminotransferase (ALT/SGPT) 45 U/L (16-63) Alkaline Phosphatase 73 U/L (46-116) Total Protein 6.2 g/dL (6.4-8.2) Albumin 3.2 g/dL (3.4-5.0) Albumin/Globulin Ratio 1.1 (1.0-1.7) Test 03/12/18 07:29 03/12/18 11:14 03/12/18 16:32 03/12/18 19:37 Glucose (Fingerstick) 101 mg/dL (70-99) 231 mg/dL (70-99) 153 mg/dL (70-99) 241 mg/dL (70-99) Test 03/13/18 07:51 Glucose (Fingerstick) 122 mg/dL (70-99) Medications Current Medications Sodium Chloride 1,000 ml @ 100 mls/hr Q10H IV Last administered on 03/09/18at 17:44; Start 03/09/18 at 16:51; Stop 03/09/18 at 20:46; Status DC Aspirin (Aspirin Enteric Coated) 325 mg DAILY PO Last administered on at 08:04; Start 03/10/18 at 09:00 Insulin Aspart (NovoLOG) 3 units TIDWMEALS SQ Last administered on 03/13/18at 08 :05; Start 03/10/18 at 08:00 Insulin Glargine (Lantus) 20 units QHS SQ Last administered on 03/12/18at 19:55 ; Start 03/09/18 at 21:00 Levothyroxine Sodium (Synthroid) 100 mcg DAILYAC PO Last administered on 05:41; Start 03/10/18 at 07:30 Amlodipine Besylate (Norvasc) 5 mg DAILY PO Last administered on 03/13/18 08: 04; Start 03/10/18 at 09:00 Carvedilol (Coreg) 12.5 mg BIDWMEALS PO Last administered on 03/10/18at 09:43; Start 03/10/18 at 08:00; Stop 03/10/18 at 10:35; Status DC Glipizide (Glucotrol) 10 mg DAILY08 PO Last administered on 03/13/18 08:04; Start 03/10/18 at 08:00 Atorvastatin Calcium (Lipitor) 20 mg QHS PO Last administered on 03/10/18 20: 07; Start 03/10/18 at 21:00; Stop 03/11/18 at 13:45; Status DC Enoxaparin Sodium (Lovenox) 40 mg Q24H SQ Last administered on 03/12/18at 19:50 ; Start 03/09/18 at 21:00 Sodium Chloride 1,000 ml @ 100 mls/hr Q10H IV Last administered on 03/09/18at 21:20; Start 03/09/18 at 20:45 Carvedilol (Coreg) 6.25 mg BIDWMEALS PO Last administered on 03/11/18 08:53; Start 03/10/18 at 17:00; Stop 03/11/18 at 13:45; Status DC Atorvastatin Calcium (Lipitor) 40 mg QHS PO Last administered on 03/12/18at 19: 50; Start 03/11/18 at 21:00 Carvedilol (Coreg) 3.125 mg BIDWMEALS PO Last administered on 03/13/18 08:04; Start 03/11/18 at 17:00 Fish Oil (Fish Oil) 1,000 mg DAILY PO Last administered on 03/13/18at 08:04; Start 03/13/18 at 09:00 Active Scripts Active Reported Novolog Flexpen (Insulin Aspart) 100 Unit/1 Ml Insuln.pen 3 Unit SQ TIDWMEALS Aspirin Ec (Aspirin) 325 Mg Tablet.dr 325 Mg PO DAILY Livalo (Pitavastatin Calcium) 4 Mg Tablet 4 Mg PO QD Synthroid (Levothyroxine Sodium) 100 Mcg Tablet 100 Mcg PO DAILYAC Lantus Solostar (Insulin Glargine,Hum.rec.anlog) 100 Unit/1 Ml Insuln.pen 20 Unit SQ QHS Glipizide 10 Mg Tablet 10 Mg PO DAILY08 Coreg Cr (Carvedilol Phosphate) 40 Mg Cpmp.24hr 40 Mg PO DAILY Norvasc (Amlodipine Besylate) 5 Mg Tablet 5 Mg PO DAILY Vitals/I & O Vital Sign - Last 24 Hours 03/12/18 03/12/18 03/12/18 03/12/18 10:51 14:27 17:01 19:10 Temp 97.8 97.9 Pulse 59 61 61 62 Resp 18 20 B/P (MAP) 153/86 (108) 163/88 (113) 163/88 158/70 (99) Pulse Ox 96 94 96 O2 Delivery Room Air Room Air Room Air 03/12/18 03/12/18 03/13/18 03/13/18 20:00 23:09 06:04 08:00 Temp 98.2 98.3 Pulse 72 56 Resp 18 18 B/P (MAP) 176/75 (108) 149/88 (108) Pulse Ox 96 97 O2 Delivery Room Air Room Air Room Air Room Air 03/13/18 03/13/18 08:04 08:04 Pulse 56 56 B/P (MAP) 149/88 149/88 Intake and Output 03/12/18 03/12/18 03/13/18 15:00 23:00 07:00 Intake Total 240 ml 2260 ml Balance 240 ml 2260 ml [facility] March 13, 2018 09:29
[2018-03-13 11:24] VITALS: BP 167/79
[2018-03-13 15:26] VITALS: BP 129/77
--- NOTE | 2018-03-13 21:02 | DS ---
DATE OF DISCHARGE: 03/13/2018 HOSPITAL COURSE: The patient is a 53-year-old male patient who came with recurrent syncopal episode. He was extensively investigated including lab work and imaging studies, had had a CT scan of the head, which was no convincing acute intracranial abnormalities identified. Chest x-ray was unremarkable with no evidence of acute cardiopulmonary disease. He has bilateral carotid Doppler ultrasound, which basically showed that there is occlusion of the left common and internal carotid artery, severe stenosis of the right carotid bifurcation greater than 70%. 1. CT arteriogram could be of benefit. Antegrade flow in both vertebral arteries, has also a lumbar spine CT, which showed that he had minimal grade 1 anterolisthesis of L5 on S1 with a right pars interarticularis defect. 2. Multilevel degenerative changes of the lumbar spine described above. This results in moderate left foraminal stenosis at L3-L4. 3. Focal outpouching of the infrarenal abdominal aorta at the level of the L3-L4 measuring 2.3 cm in caliber and likely due to focal ectasia rather than a penetrating atherosclerotic ulcer. Head CT angio, which showed that he has occlusion of the left internal carotid artery with reconstitution for ophthalmic vessels and across the anterior communicating artery, no intracranial aneurysm noted. Vertebral arteries and basilar artery are unremarkable. 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 PHYSICAL EXAMINATION: GENERAL: On examining him today, he looked well and was clearly in no apparent respiratory distress, pale, but no jaundice, cyanosis, or thyromegaly. No jugular venous distension. No limb edema. VITAL SIGNS: His heart rate was 62, blood pressure was 149/88, temperature was 97.7, respiratory rate was 20, and oxygen saturation was 97%. The rest of clinical examination is unremarkable. HEAD, EYES, EARS, NOSE AND THROAT: Showed normocephalic, atraumatic. NECK: Supple. HEART: Showed normal first and second heart sounds with no gallop, rub or murmur. CHEST: Clear to auscultation. No crepitation or rhonchi. ABDOMEN: Distended, soft, and nontender. No guarding or rigidity. No organomegaly. Hernial orifice intact. Bowel sounds normal. NEUROLOGIC: He was awake, alert, responding appropriately. All cranial nerves intact. EXTREMITIES: He moves extremities without difficulty. FINAL DISCHARGE DIAGNOSES: 1. Syncope with no recurrence since admission here on 03/10/2018. 2. Carotid artery stenosis. 3. Hypertriglyceridemia. 4. Cerebrovascular accident. 5. Poorly controlled type 2 diabetes mellitus. The patient will be discharged with a recommendation for him to follow up at [facility] where he has had surgical intervention and follow up before. SHIMON WHITESIDE MD DR: PRADEEP/alex JOB#: [id number] / [id number]
== END 2018-03-13 16:56 | disposition home or self-care (01) | DRG 68 ==
LOC: ER 16:32 → 1 SOUTH 18:00
PROVIDERS: ADMIT Internal Medicine; ATTEND Internal Medicine
DX: I65.22 Occlusion and stenosis of left carotid artery (principal); E11.65 Type 2 diabetes mellitus with hyperglycemia; I95.1 Orthostatic hypotension; E03.9 Hypothyroidism, unspecified; R00.1 Bradycardia, unspecified; E78.1 Pure hyperglyceridemia; E78.5 Hyperlipidemia, unspecified; H91.93 Unspecified hearing loss, bilateral; I10 Essential (primary) hypertension; I25.10 Atherosclerotic heart disease of native coronary artery without angina pectoris; I25.2 Old myocardial infarction; I49.3 Ventricular premature depolarization; K21.9 Gastro-esophageal reflux disease without esophagitis; K59.00 Constipation, unspecified; M48.061 Spinal stenosis, lumbar region without neurogenic claudication; Z79.4 Long term (current) use of insulin; Z80.8 Family history of malignant neoplasm of other organs or systems; Z82.3 Family history of stroke; Z82.49 Family history of ischemic heart disease and other diseases of the circulatory system; Z85.818 Personal history of malignant neoplasm of other sites of lip, oral cavity, and pharynx; Z86.73 Personal history of transient ischemic attack (TIA), and cerebral infarction without residual deficits; Z92.3 Personal history of irradiation; Z95.5 Presence of coronary angioplasty implant and graft; Z92.21 Personal history of antineoplastic chemotherapy; Z88.8 Allergy status to other drugs, medicaments and biological substances
CPT/HCPCS: 36415; 70450; 70496; 70498; 71045; 72131; 80048; 80053; 80061; 82553; 82947; 83735; 83880; 84443; 84484; 85025; 85610; 85730; 93005; 93306; 93880; J1650; J1815; 99285-25; J7030